=== PATIENT | male | born 1985 | race Caucasian/White ===

== ENCOUNTER → 2020-01-25 14:04 | Outpatient (BNVA) | payer BC, SELFPAY | PROVIDERS: Visit Provider Internal Medicine | DX: Z76.89 Persons encountering health services in other specified circumstances (principal) ==

== ENCOUNTER → 2020-02-29 14:53 | Outpatient (BNVA) | payer BC, SELFPAY | PROVIDERS: PCP Nurse Practitioner Family; Referring Provider Nurse Practitioner Family; Visit Provider Internal Medicine | DX: F11.99 Opioid use, unspecified with unspecified opioid-induced disorder (principal) | CPT/HCPCS: 80305 ==

== ENCOUNTER → 2020-03-18 08:26 | Outpatient (BNVA) | payer BC, SELFPAY | PROVIDERS: PCP Nurse Practitioner Family; Referring Provider Nurse Practitioner Family; Visit Provider Nurse Practitioner Family | DX: Z13.89 Encounter for screening for other disorder (principal) ==

== ENCOUNTER → 2020-03-28 15:52 | Outpatient (BNVA) | payer BC, SELFPAY | PROVIDERS: Visit Provider Internal Medicine | DX: Z76.89 Persons encountering health services in other specified circumstances (principal) ==

== ENCOUNTER → 2020-04-14 08:59 | Outpatient (BNVA) | payer OTHER, SELFPAY | PROVIDERS: Visit Provider Physician Assistant Medical | DX: S33.9XXA Sprain of unspecified parts of lumbar spine and pelvis, initial encounter (principal); X50.1XXA Overexertion from prolonged static or awkward postures, initial encounter; M25.559 Pain in unspecified hip | CPT/HCPCS: 99203; J1885 ==

== ENCOUNTER → 2020-04-16 08:16 | Outpatient (BNVA) | payer OTHER, SELFPAY | PROVIDERS: Visit Provider Internal Medicine | DX: S39.012A Strain of muscle, fascia and tendon of lower back, initial encounter (principal); X58.XXXA Exposure to other specified factors, initial encounter | CPT/HCPCS: 99214 ==

== ENCOUNTER → 2020-04-23 09:41 | Outpatient (BNVA) | payer OTHER, SELFPAY | PROVIDERS: PCP Nurse Practitioner Family; Visit Provider Internal Medicine | DX: M54.9 Dorsalgia, unspecified (principal); M54.10 Radiculopathy, site unspecified; M25.552 Pain in left hip; M25.551 Pain in right hip | CPT/HCPCS: 99213 ==

== ENCOUNTER → 2020-04-24 15:42 | Outpatient (BNVA) | payer OTHER, BC, SELFPAY | PROVIDERS: PCP Nurse Practitioner Family; Visit Provider Internal Medicine | DX: Z76.89 Persons encountering health services in other specified circumstances (principal) ==

== ENCOUNTER 2020-04-29 12:31 | Outpatient (REF) | payer BC, OTHER, SELFPAY ==
--- NOTE | 2020-04-29 12:35 | US_ITS ---
EXAMINATION: US RETROPERITONEAL LIMITED (RENAL ONLY) CLINICAL INFORMATION: Abdominal pain. History of renal stones. COMPARISON: Previous renal ultrasound most recent September 2018 and abdominal ultrasound November 2018, CT of the abdomen and pelvis most recent April 2018 and KUB May 2018 TECHNIQUE: Grayscale and color imaging of the kidneys FINDINGS: RIGHT KIDNEY: 12.1 x 5.7 x 4.3 cm (SAG x AP x TRV). The kidney is normal in size, contour, and echogenicity. Renal cortical thickness is normal. No calculi or focal parenchymal lesions. No hydronephrosis. LEFT KIDNEY: 12.7 x 5.3 x 5.1 cm (SAG x AP x TRV). The kidney is normal in size, contour, and echogenicity. Renal cortical thickness is normal. No calculi or focal parenchymal lesions. No hydronephrosis. US/US renal BI IMPRESSION: Normal renal ultrasound. No stone seen.
== END 2020-04-29 12:32 | disposition home or self-care (01) ==
LOC: HO.HMGCX 12:31
PROVIDERS: Visit Provider Nurse Practitioner Family
DX: R10.9 Unspecified abdominal pain (principal); Z87.442 Personal history of urinary calculi
CPT/HCPCS: 76775

== ENCOUNTER → 2020-05-07 08:02 | Outpatient (BNVA) | payer OTHER, SELFPAY | PROVIDERS: Visit Provider Internal Medicine | DX: S39.012D Strain of muscle, fascia and tendon of lower back, subsequent encounter (principal); X58.XXXD Exposure to other specified factors, subsequent encounter | CPT/HCPCS: 99213 ==

== ENCOUNTER → 2020-05-11 20:23 | Outpatient (REF) | payer BC, SELFPAY | LOC: HO.SL 20:23 | PROVIDERS: PCP Nurse Practitioner Family; Visit Provider Nurse Practitioner Family | DX: G47.33 Obstructive sleep apnea (adult) (pediatric) (principal); G25.81 Restless legs syndrome | CPT/HCPCS: 95810 ==

== ENCOUNTER → 2020-05-21 08:31 | Outpatient (BNVA) | payer OTHER, SELFPAY | PROVIDERS: PCP Nurse Practitioner Family; Visit Provider Internal Medicine | DX: S39.012D Strain of muscle, fascia and tendon of lower back, subsequent encounter (principal); X58.XXXD Exposure to other specified factors, subsequent encounter | CPT/HCPCS: 99213 ==

== ENCOUNTER → 2020-05-28 11:00 | Outpatient (BNVA) | payer BC, OTHER, SELFPAY | PROVIDERS: Visit Provider Internal Medicine | DX: F11.99 Opioid use, unspecified with unspecified opioid-induced disorder (principal) ==

== ENCOUNTER → 2020-05-30 09:03 | Outpatient (BNVA) | payer OTHER, SELFPAY | PROVIDERS: PCP Nurse Practitioner Family; Visit Provider Internal Medicine | DX: S39.012D Strain of muscle, fascia and tendon of lower back, subsequent encounter (principal); X58.XXXD Exposure to other specified factors, subsequent encounter | CPT/HCPCS: 99213 ==

== ENCOUNTER 2020-06-04 08:00 | Outpatient (RCR) | payer OTHER, BC, SELFPAY ==
--- NOTE | 2020-04-22 12:58 | MHC.PT.EP ---
[facility] [place] Office [place] Office [place] Office [address] Kevin Soriano [address] [phone] F: [phone] F: [phone] F: [phone] F: [phone] Physical Therapy Plan of Care Date of Evaluation: 04/22/20 Date of Surgery: NA Diagnosis: Back strain, sciatica Assessment: 35 year old male referred for lumbar strain, sciatica . Pt had sudden onset of pain about 2 weeks back. Pt injured himself at work while he was lifting a tire (60lbs) and stacking them. He was bent over and twisted to the L. He continued to work for a day after and noted worsening pain. Per pt he was unable to stand upright after a few days therefore went to . Examination reveals 4/10 pain at rest and 7/10 pain with standing for long, walking and sitting for long, decreased trunk ROM, decreased muscle strength, altered pelvic symmetry, altered posture and gait. He is independent with ADLS but does them slowly due to pain. He works at [employer] but is currently out of work. He is a good candidate for PT based on age, goals, physical impairments and functional limitations. He would benefit from PT to decrease pain, improve ROM, increase muscle strength and postural correction. Frequency and Duration: The patient will be seen 2/week for 5 weeks Short Term Goals: 1. Pt will have 50% decrease in pain in 2 weeks. 2. Pt will be able to move trunk through all planes of motion without pain in 3 weeks. 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 Pt will be able to perform all ADLS without pain in 4 weeks. 2. Pt will return to PLOF in 5 weeks. Treatment Plan: Modalities to reduce pain, spasms and effusion. Manual therapy to restore motion and function. Therapeutic exercise to improve strength and flexibility. Neuromuscular re-education for posture and balance. Therapeutic activities to return to functional activities of daily living. Electronically signed by: Anayeli Bhandari DPT Please sign and return to therapist. Thank you for your referral.
--- NOTE | 2020-06-04 10:10 | MHC.PT.DC ---
[facility] [place] Office [place] Office [place] Office [address] Kevin Soriano [address] [phone] F: [phone] F: [phone] F: [phone] F: [phone] Physical Therapy Discharge Report Diagnosis: Back strain, sciatica Date of Surgery: NA Date of Evaluation: 04/22/20 Date of Discharge: 06/04/20 Treatments to Date: 13 Cancellations to Date: 0 No Shows to Date: 0 Discharge Status: Achieved Goals Discharge Summary: Pt arrived with no pain. He has returned to PLOF. Pt has returned to regular duty at work and has no difficulty with it. He demonstrates good form with all work activities. Pt therefore d/c from therapy today. Pt advised to continue with lumbar stabs at home after d/c. Electronically signed by: Anayeli Bhandari DPT Please sign and return to therapist. Thank you for your referral.
== END 2020-06-04 10:11 | disposition other institution (70) ==
LOC: HO.PT 08:00
PROVIDERS: PCP Nurse Practitioner Family; Visit Provider Internal Medicine
DX: S39.012D Strain of muscle, fascia and tendon of lower back, subsequent encounter (principal); M54.30 Sciatica, unspecified side
CPT/HCPCS: 97110; 97112; 97140; 97161; 97530

== ENCOUNTER → 2020-06-10 08:34 | Outpatient (BNVA) | payer OTHER, SELFPAY | PROVIDERS: PCP Nurse Practitioner Family; Visit Provider Nurse Practitioner Family ==

== ENCOUNTER → 2020-06-25 14:03 | Outpatient (BNVA) | payer BC, OTHER, SELFPAY | PROVIDERS: PCP Nurse Practitioner Family; Visit Provider Internal Medicine | DX: F11.99 Opioid use, unspecified with unspecified opioid-induced disorder (principal); Z79.899 Other long term (current) drug therapy | CPT/HCPCS: 80305 ==

== ENCOUNTER 2020-07-09 13:58 | Outpatient (REF) | payer BC, SELFPAY ==
[2020-07-15 23:32] LABS: Buprenorphine 4 ng/mL; Norbuprenorphine 22 ng/mL
== END 2020-07-09 13:59 | disposition home or self-care (01) ==
LOC: HO.LNP 13:58
PROVIDERS: PCP Nurse Practitioner Family; Visit Provider Internal Medicine
DX: F11.99 Opioid use, unspecified with unspecified opioid-induced disorder (principal); Z51.81 Encounter for therapeutic drug level monitoring
CPT/HCPCS: 80305; 80348

== ENCOUNTER → 2020-07-23 15:02 | Outpatient (BNVA) | payer BC, SELFPAY | PROVIDERS: Visit Provider Internal Medicine | DX: F11.99 Opioid use, unspecified with unspecified opioid-induced disorder (principal); Z51.81 Encounter for therapeutic drug level monitoring | CPT/HCPCS: 80305 ==

== ENCOUNTER → 2020-08-06 15:31 | Outpatient (BNVA) | payer BC, SELFPAY | PROVIDERS: Visit Provider Internal Medicine | DX: Z51.81 Encounter for therapeutic drug level monitoring (principal); F11.99 Opioid use, unspecified with unspecified opioid-induced disorder | CPT/HCPCS: 80305 ==

== ENCOUNTER → 2020-08-20 10:09 | Outpatient (BNVA) | payer BC, SELFPAY | PROVIDERS: PCP Nurse Practitioner Family; Visit Provider Internal Medicine | DX: F11.99 Opioid use, unspecified with unspecified opioid-induced disorder (principal); Z51.81 Encounter for therapeutic drug level monitoring | CPT/HCPCS: 80305; 96372 ==

== ENCOUNTER → 2020-09-17 10:27 | Outpatient (BNVA) | payer BC, SELFPAY | PROVIDERS: Visit Provider Internal Medicine | DX: F11.21 Opioid dependence, in remission (principal) | CPT/HCPCS: 80305; 96372; Q9992 ==

== ENCOUNTER → 2020-10-17 10:38 | Outpatient (BNVA) | payer BC, SELFPAY | PROVIDERS: Visit Provider Internal Medicine | DX: F11.21 Opioid dependence, in remission (principal) | CPT/HCPCS: 80305; 96372; Q9991 ==

== ENCOUNTER 2021-05-29 07:14 | Outpatient (REF) | payer BC, SELFPAY ==
[2021-05-29 11:18] LABS: MANUAL DIFF FLAG NO
[2021-05-29 11:23] LABS: Basophils Absolute Auto 0.1 X10*3/uL (0.0-0.2); Basophils Percent Auto 0.5 % (0-2); Eosinophils Absolute Auto 0.2 X10*3/uL (0.0-0.4); Eosinophils Percent Auto 1.9 % (0-4); Hematocrit 45.3 % (42.0-52.0); Hemoglobin 15.4 g/dl (14.0-18.0); Imm Gran Abs Auto 0.03 X10*3/uL (0.00-0.03); Imm Gran Pct Auto 0.3 % (0.0-0.4); Lymphocytes Absolute Auto 2.9 X10*3/uL (1.2-4.9); Lymphocytes Percent Auto 28.3 % (20-40); Mean Corpuscular Hemoglobin 30.1 pg (27.0-33.0); Mean Corpuscular Volume 88.5 fL (80.0-98.0); Mean Platelet Volume 10.5 fL (9.4-12.4); Monocytes Absolute Auto 0.7 X10*3/uL (0.1-1.2); Monocytes Percent Auto 6.5 % (2-11); Neutrophils Absolute Auto 6.3 x10*3/uL (2.0-8.3); Neutrophils Percent Auto 62.5 % (45-73); Platelet Count 284 X10*3/uL (160-400); Red Blood Count 5.12 X10*6/uL (4.60-5.80); Red Cell Distribution Width 13.5 % (11.0-16.0); White Blood Count 10.1 X10*3/uL (4.8-10.8)
[2021-05-29 11:30] LABS: Appearance Urine CLOUDY; Color Urine YELLOW; Glucose Urine UA NEG (NEG); Leukocyte Esterase Urine NEG (NEG); Nitrite Urine NEG (NEG); PH 5.5 (5.0-8.0); Specific Gravity - Urine >= 1.030 (1.005-1.025); Urine Blood NEG (NEG); Urine Ketones NEG (NEG); Urine Protein NEG (NEG-TRACE)
[2021-05-29 11:41] LABS: Amorphous Sediment Urine 4+ /LPF; RBC Urine 0 /HPF (0); WBC Urine 0 /HPF (0-4)
[2021-05-29 11:46] LABS: Alanine Aminotransferase 27 U/L (0-40); Albumin Level 4.2 g/dL (3.5-5.0); Alkaline Phosphatase 77 U/L (39-117); Anion Gap 14 (12-20); Aspartate Amino Transferase 17 U/L (5-37); Bilirubin Total 0.6 mg/dL (0.0-1.0); Blood Urea Nitrogen 13 mg/dL (9-16); Calcium 9.6 mg/dL (8.4-10.2); Carbon Dioxide 25 mmol/L (22-29); Chloride 106 mmol/L (96-108); Estimated Glomerular Filt Rate > 60; Glucose Random 108 mg/dL (60-115); Potassium 4.3 mmol/L (3.3-5.1); Sodium 141 mmol/L (135-145); Total Protein 6.8 g/dL (6.5-8.0)
[2021-05-29 12:09] LABS: Prostate Specific Antigen Scr 0.92 ng/mL (<0.05-4.0)
[2021-05-30 08:06] LABS: Follicle Stimulating Hormone 5.8 mIU/mL (1.6-8.0); Lutenizing Hormone 3.5 mIU/mL (1.5-9.3)
[2021-06-02 14:31] LABS: Testosterone, Total 71 ng/dL (250-1100)
== END 2021-05-29 07:15 | disposition home or self-care (01) ==
LOC: HO.HMGCLDS 07:14
PROVIDERS: Absent Provider Nurse Practitioner Family; Visit Provider Nurse Practitioner Family
DX: Z12.5 Encounter for screening for malignant neoplasm of prostate (principal); R32 Unspecified urinary incontinence; R68.82 Decreased libido
CPT/HCPCS: 36415; 80053; 81001; 83001; 83002; 84153; 84403; 85025; 87086

== ENCOUNTER 2021-10-30 07:17 | Outpatient (REF) | payer BC, SELFPAY ==
[2021-10-30 12:05] LABS: Albumin Level 4.3 g/dL (3.5-5.0)
[2021-11-01 03:01] LABS: Follicle Stimulating Hormone 6.1 mIU/mL (1.6-8.0); Lutenizing Hormone 3.5 mIU/mL (1.5-9.3); Sex Hormone Binding Globulin 15 nmol/L (10-50)
[2021-11-06 12:56] LABS: Testosterone, Free 48.4 pg/mL (35.0-155.0); Testosterone, Total 195 ng/dL (250-1100)
== END 2021-10-30 07:18 | disposition home or self-care (01) ==
LOC: HO.HMGCLDS 07:17
PROVIDERS: Visit Provider Urology
DX: E29.1 Testicular hypofunction (principal); R79.89 Other specified abnormal findings of blood chemistry
CPT/HCPCS: 36415; 82040; 83001; 83002; 84270; 84402; 84403

== ENCOUNTER 2021-11-06 07:14 | Outpatient (REF) | payer BC, SELFPAY ==
[2021-11-09 02:36] LABS: Lutenizing Hormone 10.3 mIU/mL (1.5-9.3)
[2021-11-12 10:06] LABS: Testosterone, Free 89.7 pg/mL (35.0-155.0); Testosterone, Total 419 ng/dL (250-1100)
[2021-11-13 21:41] LABS: Estradiol Ultra Sensitive 30 pg/mL (< OR = 29)
== END 2021-11-06 07:15 | disposition home or self-care (01) ==
LOC: HO.HMGCLDS 07:14
PROVIDERS: Visit Provider Urology
DX: R79.89 Other specified abnormal findings of blood chemistry (principal); E29.1 Testicular hypofunction
CPT/HCPCS: 36415; 82670; 83001; 83002; 84402; 84403

== ENCOUNTER 2022-02-10 09:23 | Outpatient (REF) | payer BC, SELFPAY ==
[2022-02-12 13:27] LABS: Lutenizing Hormone 22.6 mIU/mL (1.5-9.3)
[2022-02-16 09:07] LABS: Testosterone, Total 815 ng/dL (250-1100)
== END 2022-02-10 09:24 | disposition home or self-care (01) ==
LOC: HO.HMGCLDS 09:23
PROVIDERS: PCP Nurse Practitioner Family; Visit Provider Urology
DX: E29.1 Testicular hypofunction (principal)
CPT/HCPCS: 36415; 83002; 84403

== ENCOUNTER 2022-05-07 08:31 | Outpatient (REF) | payer BC, SELFPAY ==
[2022-05-07 12:47] LABS: Prostate Specific Antigen 1.81 ng/mL (<0.05-4.0)
[2022-05-08 23:29] LABS: Lutenizing Hormone 16.6 mIU/mL (1.5-9.3)
[2022-05-12 20:33] LABS: Estradiol Ultra Sensitive 52 pg/mL (< OR = 29)
[2022-05-13 11:58] LABS: Testosterone, Total 595 ng/dL (250-1100)
== END 2022-05-07 08:32 | disposition home or self-care (01) ==
LOC: HO.HMGCLDS 08:31
PROVIDERS: PCP Nurse Practitioner Family; Visit Provider Urology
DX: Z12.5 Encounter for screening for malignant neoplasm of prostate (principal); E29.1 Testicular hypofunction; R79.89 Other specified abnormal findings of blood chemistry
CPT/HCPCS: 36415; 82670; 83002; 84153; 84403

== ENCOUNTER → 2022-05-19 14:18 | Outpatient (BNVA) | payer BC, SELFPAY | PROVIDERS: PCP Nurse Practitioner Family; Visit Provider Urology | DX: Z13.89 Encounter for screening for other disorder (principal) ==

== ENCOUNTER 2022-08-04 08:31 | Outpatient (REF) | payer BC, SELFPAY ==
[2022-08-04 11:27] LABS: MANUAL DIFF FLAG NO
[2022-08-04 11:38] LABS: Basophils Absolute Auto 0.1 X10*3/uL (0.0-0.2); Basophils Percent Auto 0.9 % (0-2); Eosinophils Absolute Auto 0.1 X10*3/uL (0.0-0.4); Eosinophils Percent Auto 2.1 % (0-4); Hematocrit 45.4 % (42.0-52.0); Hemoglobin 15.8 g/dl (14.0-18.0); Imm Gran Abs Auto 0.01 X10*3/uL (0.00-0.03); Imm Gran Pct Auto 0.2 % (0.0-0.4); Lymphocytes Absolute Auto 2.7 X10*3/uL (1.2-4.9); Lymphocytes Percent Auto 40.7 % (20-40); Mean Corpuscular HGB Conc 34.8 g/dl (31.0-36.0); Mean Corpuscular Hemoglobin 31.3 pg (27.0-33.0); Mean Corpuscular Volume 90.1 fL (80.0-98.0); Mean Platelet Volume 10.6 fL (9.4-12.4); Monocytes Absolute Auto 0.5 X10*3/uL (0.1-1.2); Monocytes Percent Auto 8.1 % (2-11); Neutrophils Absolute Auto 3.2 x10*3/uL (2.0-8.3); Platelet Count 227 X10*3/uL (160-400); Red Blood Count 5.04 X10*6/uL (4.60-5.80); Red Cell Distribution Width 13.7 % (11.0-16.0); White Blood Count 6.6 X10*3/uL (4.8-10.8)
[2022-08-04 11:39] LABS: Appearance Urine Turbid; Color Urine Yellow; Glucose Urine UA Negative (Negative); Leukocyte Esterase Urine Negative (Negative); Nitrite Urine Negative (Negative); Specific Gravity - Urine 1.025 (1.005-1.025); Urine Blood Negative (Negative); Urine Ketones Negative (Negative); Urine Protein Negative (Neg-Trace)
[2022-08-04 12:51] LABS: Alanine Aminotransferase 30 U/L (0-40); Albumin Level 4.2 g/dL (3.5-5.0); Alkaline Phosphatase 68 U/L (39-117); Anion Gap 11 (12-20); Aspartate Amino Transferase 23 U/L (5-37); Bilirubin Total 0.6 mg/dL (0.0-1.0); Blood Urea Nitrogen 16 mg/dL (9-16); Calcium 9.2 mg/dL (8.4-10.2); Carbon Dioxide 27 mmol/L (22-29); Chloride 107 mmol/L (96-108); Cholesterol 205 mg/dL; Estimated Glomerular Filt Rate > 60; Glucose Fasting 109 mg/dL (60-99); HDL Cholesterol 40 mg/dL; LDL Cholesterol Calculated 147 mg/dl; Potassium 4.2 mmol/L (3.3-5.1); Sodium 141 mmol/L (135-145); TSH reflex Free T4 1.05 uIU/mL (0.32-4.0); Total Protein 6.4 g/dL (6.5-8.0); Triglycerides 93 mg/dL
[2022-08-05 11:54] LABS: Lutenizing Hormone 6.3 mIU/mL (1.5-9.3)
[2022-08-09 13:13] LABS: Testosterone, Total 303 ng/dL (250-1100)
== END 2022-08-04 08:32 | disposition home or self-care (01) ==
LOC: HO.HMGCLDS 08:31
PROVIDERS: Absent Provider Urology; PCP Nurse Practitioner Family; Visit Provider Nurse Practitioner Family
DX: R79.89 Other specified abnormal findings of blood chemistry (principal); I10 Essential (primary) hypertension
CPT/HCPCS: 36415; 80053; 80061; 81003; 83002; 84403; 84443; 85025

== ENCOUNTER → 2022-08-17 14:19 | Outpatient (BNVA) | payer BC, SELFPAY | PROVIDERS: PCP Nurse Practitioner Family; Visit Provider Urology | DX: N20.0 Calculus of kidney (principal); F11.20 Opioid dependence, uncomplicated; R79.89 Other specified abnormal findings of blood chemistry | CPT/HCPCS: 99212 ==

== ENCOUNTER 2022-11-12 07:31 | Outpatient (REF) | payer BC, SELFPAY ==
[2022-11-12 13:25] LABS: Alanine Aminotransferase 29 U/L (0-40); Albumin Level 4.3 g/dL (3.5-5.0); Alkaline Phosphatase 62 U/L (39-117); Anion Gap 13 (12-20); Aspartate Amino Transferase 19 U/L (5-37); Bilirubin Total 0.4 mg/dL (0.0-1.0); Blood Urea Nitrogen 17 mg/dL (9-16); Calcium 9.7 mg/dL (8.4-10.2); Carbon Dioxide 26 mmol/L (22-29); Chloride 107 mmol/L (96-108); Cholesterol 221 mg/dL; Estimated Glomerular Filt Rate > 60; Glucose Fasting 109 mg/dL (60-99); HDL Cholesterol 44 mg/dL; LDL Cholesterol Calculated 154 mg/dl; Potassium 4.2 mmol/L (3.3-5.1); Sodium 142 mmol/L (135-145); Total Protein 6.9 g/dL (6.5-8.0); Triglycerides 116 mg/dL
[2022-11-14 10:04] LABS: Lutenizing Hormone 3.5 mIU/mL (1.5-9.3)
[2022-11-18 16:28] LABS: Testosterone, Free 81.1 pg/mL (35.0-155.0); Testosterone, Total 367 ng/dL (250-1100)
[2022-11-18 22:47] LABS: Estradiol Ultra Sensitive 17 pg/mL (< OR = 29)
== END 2022-11-12 07:32 | disposition home or self-care (01) ==
LOC: HO.HMGCLDS 07:31
PROVIDERS: Absent Provider Urology; PCP Nurse Practitioner Family; Visit Provider Nurse Practitioner Family
DX: R79.89 Other specified abnormal findings of blood chemistry (principal); E78.5 Hyperlipidemia, unspecified
CPT/HCPCS: 36415; 80053; 80061; 82670; 83002; 84402; 84403

== ENCOUNTER 2022-11-23 13:06 | Outpatient (AMB) | payer BC, SELFPAY ==
--- NOTE | 2022-11-23 13:14 | MHC.OFFVIS ---
Intake Intake Visit Reasons: 3M Estradiol/LH/Testo(pending) Intake Note: Patient is present for Follow Up labs Urology Med:none Antibiotic Allergy: none Blood Thinner: none Pharmacy: [facility] Allergies No Known Allergies [No Known Allergies*] Allergy (Verified 11/23/22 13:15) many environmental allergies Allergy (Unknown, Uncoded 11/23/22 13:15) Unknown HPI HPI Comments History of Present Illness Details Jake is a pleasant male. He is a patient Dr. Pride. He is seen for following urologic conditions - nephrolithiasis - low testosterone Lab work remains in target of medications Encouraged to remain on sleep apnea machine 6 month follow-up Will plan on reviewing stones Nephrolithiasis Imaging - 05/15 renal ultrasound no stone seen Low testosterone Initial symptoms lack of energy, decreased libido, no morning erections Has sleep apnea treated with machine Prior opiate dependence No reported significant viral illnesses Laboratories - 06/16 T 71 LH 3.5 T 195, 11/13 T 420 LH 10, 02/13 T 815 LH 22, 05/17 T 600 LH 16 E 52, 08/15 T 305 LH 6.6 - 11/13 Clomiphene stim - LH 10.3 T 415 - 11/14 T 367 Fr 81 LH 3.5 Biochemical apparent testicular resistance Normal testicular size on exam Prior therapy Clomiphene 50mg QOD, Clomiphene 25mg QOD PFSH Medical History Opioid use disorder Sleep disorder Snoring Family History Father No problems noted. Mother No problems noted. Son No problems noted. Sister No problems noted. Sister No problems noted. Social History Housing: House Patient Tobacco Use Status: Current everyday Tobacco user Cigarette Packs Per Day: 1 e-Cigarette/Vaping Use: Never Used Second Hand Smoke Exposure: Yes service: No Current occupational status: employed Current occupation: [employer] Current occupational exposures/hazards: No Cognitive needs: No Hearing needs: No Vision needs: No Review of Systems Const Denies chills and Denies fever(s) Card Reports no additional complaints and Denies syncope Resp Denies cough GI Denies abdominal pain and Denies heartburn Reports as per HPI and Denies change in libido Neuro Denies syncope Psych Denies change in libido Endo Denies change in libido Physical Exam Const General: cooperative, healthy appearing, comfortable and no acute distress Orientation/consciousness: patient oriented x3 HEENT Face and sinus: Yes normal facial exam Mouth: moist mucous membranes Neck Neck: Yes normal visual inspection, Yes full ROM and Yes trachea midline Chest Chest palpation & inspection: normal inspection of the chest Resp Effort & Inspection: normal respiratory effort, able to speak in complete sentences and no respiratory distress GI Inspection: Yes normal to inspection Back/Spine/Pelvis Cervical Spine: normal cervical lordosis Thoracic/Lumbar Spine: thoracic and lumbar spine normal to inspection Skin General skin exam: no rashes or lesions noted Neuro General: patient oriented x3, gait normal, tone normal and moves all extremities Extrem General: Yes normal to inspection and Yes capillary refill normal Assessment & Plan Assessment & Plan (1) Erectile dysfunction: Code(s): N52.9 - Male erectile dysfunction, unspecified Plan Six month follow-up Orders: Orders Testosterone, Free/Total 6 Months R79.89 - Other specified abnormal findings of blood chemistry Medications: New tadalafil On demand medication take 60 minutes before intended activity 20 mg PO ONCE 30 tabs 1RF sexual activity 30 days N52.9 - Male erectile dysfunction, unspecified Patient Instructions: Imaging studies, laboratory and physical exam results were discussed and reviewed in detail. No major barriers to patient understanding were identified. An opportunity to ask questions regarding the treatment plan was provided. All questions were answered. The patient expressed understanding and agreement with the above treatment plan. The patient is aware they should contact our office by phone for worsening of their current condition or the appearance of new urologic symptoms. Compliance is encouraged with any medications and followup testing that is ordered. It is a privilege to participate in the urologic care of your patient. If you have any questions or concerns regarding treatment for the above conditions, or other urologic issues, please do not hesitate to contact me. The office telephone contact is [phone]. This note is constructed using voice recognition software. While every effort has been made to ensure accuracy supervisor powder and primer canning errors may have been included. Yours sincerely, Dr Nacho Andujar MD, [facility] - Urology Providers of Expert, Compassionate Care for the Genitourinary System Coding Level of Care Code Est Pt Level 3 (99587) Diagnoses Erectile dysfunction N52.9
== END 2022-11-23 13:49 | disposition home or self-care (01) ==
PROVIDERS: Visit Provider Urology
DX: N52.9 Male erectile dysfunction, unspecified (principal)
CPT/HCPCS: 99213

== ENCOUNTER → 2022-11-23 13:06 | Outpatient (BNVA) | payer BC, SELFPAY | PROVIDERS: Visit Provider Urology ==

== ENCOUNTER 2023-01-19 07:32 | Outpatient (AMB) | payer BC, SELFPAY ==
[2023-01-19 07:38] VITALS: BP 110/88; PULSE 79; O2SAT 99; BMI 32.1
--- NOTE | 2023-01-19 07:38 | MHC.PC.OV ---
Vital Signs 01/19/23 07:38 Height 5 ft 10 in Weight 223 lb 8 oz BMI 32.1 BP 110/88 Blood Pressure Location Rt brachial Position Sitting Pulse 79 Pulse Source Pulse Oximeter Pulse Oximetry (%) 99 Oxygen Delivery Method Room Air Intake Visit Reasons: PE Allergies No Known Allergies [No Known Allergies*] Allergy (Verified 01/19/23 07:40) many environmental allergies Allergy (Unknown, Uncoded 01/19/23 07:40) Unknown Medication List - Last Reconciled 01/19/23 by YAEL Blanco-SIRI albuterol sulfate 90 mcg/actuation 2 puffs inhalation Q4-6H PRN ibuprofen 800 mg PO TID irbesartan 150 mg PO DAILY 90 days omeprazole 20 mg PO BID tadalafil 20 mg PO ONCE 30 days Tobacco use date assessed: 01/19/23 Dental Screening Dental Screen Date: 01/19/23 Did you have a dental visit in the last 12 months?: No Did you have a dental problem in the last 6 months where you did not have access to dental care?: No Was dental information given to patient?: Patient has dentist HPI PE HPI Details Pt is here for a PE. Will order labs. Pt reports dizziness upon standing. ? blood pressure issue. Will have pt monitor his blood pressure at home while sitting, standing, and laying down. Encouraged pt to push fluids and electrolytes, ? dehydration component, will also get labs. Pt c/o left flank pain. He has a hx of kidney stones. Will order CT. Denies fever, chills, and hematuria. knows to go to the ER with worsening symptoms. [facility] Medical History Opioid use disorder Sleep disorder Snoring Family History Father No problems noted. Mother No problems noted. Son No problems noted. Sister No problems noted. Sister No problems noted. Social History Housing: House Patient Tobacco Use Status: Current everyday Tobacco user Cigarette Packs Per Day: 1 e-Cigarette/Vaping Use: Never Used Second Hand Smoke Exposure: Yes service: No Current occupational status: employed Current occupation: [employer] Current occupational exposures/hazards: No Cognitive needs: No Hearing needs: No Vision needs: No Review of Systems Const Denies chills and Denies fever(s) Eyes Denies blurry vision ENT Denies vertigo, Reports dizziness and Denies sore throat Card Denies chest pain at rest, Denies chest pain with activity, Denies diaphoresis, Denies dyspnea and Denies dyspnea on exertion Resp Denies cough, Denies dyspnea, Denies dyspnea on exertion and Denies wheezing GI Denies abdominal pain, Denies melena, Denies hematochezia, Denies constipation, Denies diarrhea and Denies loose stools Denies hematuria Musc Denies numbness and Denies tingling Skin/Breast Denies lesions Neuro Denies vertigo, Reports dizziness, Denies numbness and Denies tingling Psych Denies anxiety, Denies depression, Denies homicidal ideation, Denies suicidal ideation and Denies other (substance abuse) Aller/Immun Denies wheezing Physical exam (Primary Care) Vital Signs: Last Vital Signs Pulse 79 01/19/23 07:38 BP 110/88 01/19/23 07:38 Pulse Ox 99 01/19/23 07:38 Oxygen Delivery Method Room Air 01/19/23 07:38 BMI result Body Mass Index 32.1 Tobacco/Smoking Status: Tobacco use Status Tobacco use date assessed 01/19/23 01/19/23 07:42 Patient Tobacco Use Status Current everyday Tobacco 01/19/23 07:42 e-Cigarette/Vaping Use Never Used 01/19/23 07:42 Const General: cooperative Nutritional Appearance: well nourished Orientation/consciousness: patient oriented x3 HENMT Head: Yes normal to inspection, Yes normocephalic and Yes atraumatic Ears: TM's normal bilaterally Eyes General: appearance normal, both eyes and all related structures Alignment and Position: alignment normal and position normal Neck Neck: Yes normal visual inspection and Yes no lymphadenopathy Thyroid: Thyroid normal Resp Effort & Inspection: normal respiratory effort Auscultation: clear to auscultation bilaterally Cardio Rate: regular rate Rhythm: regular rhythm Heart sounds: S1 normal heart sound present, S2 normal heart sound present and no murmurs GI Palpation (GI): Soft to palpation and nontender Auscultation: normal bowel sounds General: Yes no CVA tenderness Male General Exam: Yes normal external exam Penis: normal penis Scrotum: scrotum normal, testes descended bilaterally and no inguinal hernias Testes: no testicular mass Back/Spine/Pelvis Back: no CVA tenderness Skin Rashes: no rashes Neuro General: patient oriented x3, moves all extremities, no focal motor deficits and deep tendon reflexes 2+ bilaterally Romberg Test: Negative Psych Appearance: grossly normal Mental Status: mental status grossly normal Speech and movement: Normal speech and movement present Affect: normal affect Attitude: cooperative Thought process: Normal thought process present Thought content: Normal thought content present Insight: Good insight present (Psych) Judgement: Good judgement present (Psych) Assessment and Plan Assessment & Plan (1) Physical exam: Code(s): Z00.00 - Encounter for general adult medical examination without abnormal findings Plan: Labs ordered (2) Acute left flank pain: Code(s): R10.9 - Unspecified abdominal pain Plan: CT ordered (3) Kidney stones: Code(s): N20.0 - Calculus of kidney Plan: CT ordered Plan The patient agreed to the use of a medical/surgery registered nurse for this encounter. Scribed for YAEL Nagel-SIRI by Blanca Farris medical/surgery registered nurse, on 01/19/2023 at 07:45 EST. Orders: Orders Complete Blood Count Auto Diff Today Z00.00 - Encounter for general adult medical examination without abnormal findings TSH reflex Free T4 Today Z00.00 - Encounter for general adult medical examination without abnormal findings UA CC w/rflx Micro + Cult Today Z00.00 - Encounter for general adult medical examination without abnormal findings Lipid Panel Today Z00.00 - Encounter for general adult medical examination without abnormal findings CT abdomen pelvis wo IV con Today N20.0 - Calculus of kidney, R10.9 - Unspecified abdominal pain Comprehensive [place]. Panel Fast Today Z00.00 - Encounter for general adult medical examination without abnormal findings Coding Level of Care Code Est Pt Prev Care 18-39y(61549) Diagnoses Physical exam Z00.00 Acute left flank pain R10.9 Kidney stones N20.0
== END 2023-01-19 08:00 | disposition home or self-care (01) ==
PROVIDERS: Visit Provider Nurse Practitioner Family
DX: Z00.00 Encounter for general adult medical examination without abnormal findings (principal); R10.9 Unspecified abdominal pain; N20.0 Calculus of kidney
CPT/HCPCS: 99395

== ENCOUNTER 2023-02-18 07:41 | Outpatient (REF) | payer BC, SELFPAY ==
--- NOTE | ~2023-02-18 | CT_ITS ---
EXAMINATION: CT ABDOMEN AND PELVIS WITHOUT CONTRAST CLINICAL INFORMATION: Calculus of kidney. COMPARISON: Renal ultrasound 04/29/2020, CT abdomen 05/05/2018. TECHNIQUE: Multidetector volumetric imaging was performed from the superior aspect of the liver through the pubic symphysis. Sagittal and coronal reformatted images were obtained on the technologist's workstation. This CT examination was performed using dose optimization techniques as appropriate, variously including the following: *Automated exposure control *Adjustment of mA and/or kV according to patient size (this includes techniques or standardized protocols for targeted exams where dose is matched to indication/reason for exam; i.e. extremities or head) *Use of iterative reconstruction technique DLP: 581 mGy-cm FINDINGS: LUNG BASES: The visualized lung bases are unremarkable. LIVER, GALLBLADDER, AND BILIARY TREE: The liver is normal in size, shape, and attenuation. No focal hepatic lesion or biliary ductal dilatation is present. The gallbladder is unremarkable with no evidence of radiopaque gallstones, gallbladder wall thickening, or obvious pericholecystic inflammatory changes. PANCREAS: Unremarkable. SPLEEN: Unremarkable. ADRENAL GLANDS: Unremarkable. KIDNEYS AND URETERS: In the lower pole of the left kidney there is a 3 mm calculus present, unchanged from 05/05/2018. At the time of the prior study, there was a larger branching calculus in the left mid to upper kidney which is no longer present. At the lower pole of the right kidney there is a barely perceptible punctate 1-2 mm density seen which could represent a tiny stone (3:39). No other right-sided calculi. No renal masses or hydronephrosis. BLADDER: Unremarkable. GASTROINTESTINAL TRACT: The small and large bowel are unremarkable aside from scattered colonic diverticula without diverticulitis. The appendix is unremarkable. ABDOMINAL WALL: Small bilateral inguinal hernias are seen containing only fat. LYMPH NODES: No retroperitoneal lymphadenopathy. VASCULAR: Unremarkable. PELVIC VISCERA: There is mild BPH. Seminal vesicles appear normal. OSSEOUS STRUCTURES: Mild degenerative changes are present in the spine most marked at L4-L5 with disc space narrowing. No bony destructive lesions. CT/CT abdomen pelvis wo IV con IMPRESSION: 1. There is a 3 mm nonobstructing calculus in the lower pole of the left kidney with a barely perceptible punctate 1-2 mm punctate density seen in the lower pole of the right kidney which could represent a tiny stone. 2. Other incidental findings as described above including colonic diverticulosis, small bilateral inguinal hernias containing only fat and mild BPH. Fleischner guidelines were followed.
== END 2023-02-18 07:42 | disposition home or self-care (01) ==
LOC: HO.CT 07:41
PROVIDERS: PCP Nurse Practitioner Family; Visit Provider Nurse Practitioner Family
DX: N20.0 Calculus of kidney (principal); R10.9 Unspecified abdominal pain
CPT/HCPCS: 74176

== ENCOUNTER 2023-05-23 12:50 | Outpatient (REF) | payer BC, SELFPAY ==
[2023-05-28 21:24] LABS: Testosterone, Free 41.6 pg/mL (35.0-155.0); Testosterone, Total 218 ng/dL (250-1100)
== END 2023-05-23 12:51 | disposition home or self-care (01) ==
LOC: HO.HMGCLDS 12:50
PROVIDERS: PCP Nurse Practitioner Family; Visit Provider Urology
DX: R79.89 Other specified abnormal findings of blood chemistry (principal)
CPT/HCPCS: 36415; 84402; 84403

== ENCOUNTER 2023-06-02 11:17 | Outpatient (AMB) | payer BC, SELFPAY ==
--- NOTE | 2023-06-02 11:20 | MHC.OFFVIS ---
Intake Intake Visit Reasons: Testosterone (SET) Intake Note: Patient is Present for Telephone Follow Up Testosterone Urology Med: Tadalafil Antibiotic Allergy: None Blood Thinner: None Allergies No Known Allergies [No Known Allergies*] Allergy (Verified 06/02/23 11:22) many environmental allergies Allergy (Unknown, Uncoded 06/02/23 11:22) Unknown Medication List - Last Reconciled 06/02/23 by Nacho Andujar MD albuterol sulfate 90 mcg/actuation 2 puffs inhalation Q4-6H PRN ibuprofen 800 mg PO TID irbesartan 150 mg PO DAILY 90 days omeprazole 20 mg PO BID tadalafil 20 mg PO ONCE 30 days tadalafil 5 mg PO DAILY 90 days HPI HPI Comments History of Present Illness Details Jake is a pleasant male. He is a patient Dr. Pride. He is seen for following urologic conditions - nephrolithiasis - low testosterone Telemedicine Evaluation 15 min Consultation [employer] Video attempted Discussed use of daily low-dose Cialis to try to bring up testosterone Is borderline low Has been drifting down Clomiphene no longer available Lab work remains in target of medications Previously encouraged to remain on sleep apnea machine Nephrolithiasis Imaging - 05/15 renal ultrasound no stone seen - 04/16 CT scan with 3 mm stone [place] - 2018 Calcium Oxalate Monohydrate ([place]) 80% Low testosterone Initial symptoms lack of energy, decreased libido, no morning erections Has sleep apnea treated with machine Prior opiate dependence No reported significant viral illnesses Laboratories - 06/16 T 71 LH 3.5 T 195, 11/13 T 420 LH 10, 02/13 T 815 LH 22, 05/17 T 600 LH 16 E 52, 08/15 T 305 LH 6.6 - 11/13 Clomiphene stim - LH 10.3 T 415, 11/14 T 367 Fr 81 LH 3.5, 05/18 218 Fr 42 Biochemical apparent testicular resistance Normal testicular size on exam Prior therapy Clomiphene 50mg QOD, Clomiphene 25mg QOD PFSH Medical History Opioid use disorder Sleep disorder Snoring Family History Father No problems noted. Mother No problems noted. Son No problems noted. Sister No problems noted. Sister No problems noted. Social History Housing: House Patient Tobacco Use Status: Current everyday Tobacco user Cigarette Packs Per Day: 1 e-Cigarette/Vaping Use: Never Used Second Hand Smoke Exposure: Yes service: No Current occupational status: employed Current occupation: [employer] Current occupational exposures/hazards: No Cognitive needs: No Hearing needs: No Vision needs: No Review of Systems Const All systems reviewed & are unremarkable except as noted in HPI and below Reports no additional complaints Resp Reports no additional complaints GI Reports no additional complaints Reports as per HPI Musc Reports no additional complaints Physical Exam Telemedicine evaluation Appropriate responses Regular breathing rate and rhythm HEENT Head: Yes normal to inspection Ears: hearing grossly normal bilaterally Eyes General: appearance normal, both eyes and all related structures Neck Neck: Yes normal visual inspection Chest Chest palpation & inspection: normal inspection of the chest Resp Effort & Inspection: normal respiratory effort and able to speak in complete sentences Assessment & Plan Assessment & Plan (1) Erectile dysfunction: Code(s): N52.9 - Male erectile dysfunction, unspecified (2) Low testosterone: Code(s): R79.89 - Other specified abnormal findings of blood chemistry Plan Three month follow-up labs Orders: Orders Testosterone, Free/Total 3 Months R79.89 - Other specified abnormal findings of blood chemistry Medications: New tadalafil daily medication 5 mg PO DAILY 90 tabs 0RF sexual activity 90 days R79.89 - Other specified abnormal findings of blood chemistry Patient Instructions: Imaging studies, laboratory and physical exam results were discussed and reviewed in detail. No major barriers to patient understanding were identified. An opportunity to ask questions regarding the treatment plan was provided. All questions were answered. The patient expressed understanding and agreement with the above treatment plan. The patient is aware they should contact our office by phone for worsening of their current condition or the appearance of new urologic symptoms. Compliance is encouraged with any medications and followup testing that is ordered. It is a privilege to participate in the urologic care of your patient. If you have any questions or concerns regarding treatment for the above conditions, or other urologic issues, please do not hesitate to contact me. The office telephone contact is [phone]. This note is constructed using voice recognition software. While every effort has been made to ensure accuracy dot etcher errors may have been included. Yours sincerely, Dr Nacho Andujar MD, [facility] - Urology Providers of Expert, Compassionate Care for the Genitourinary System Telehealth Telehealth Location of provider rendering services: practice address Location of patient: address on file Patient Identification confirmed using: Name, : Yes Telehealth method: video Patient verbally consented to treatment: Yes Patient verbally consented to billing insurance company: Yes Patient informed of any privacy concerns related to visit: Yes Coding Level of Care Code Tele Est Pt Level 4 (13861) Diagnoses Erectile dysfunction N52.9 Low testosterone R79.89
== END 2023-06-02 11:56 | disposition home or self-care (01) ==
LOC: HO.HUSH 11:17
PROVIDERS: PCP Nurse Practitioner Family; Visit Provider Urology
DX: N52.9 Male erectile dysfunction, unspecified (principal); R79.89 Other specified abnormal findings of blood chemistry
CPT/HCPCS: 99213

== ENCOUNTER → 2023-06-02 11:17 | Outpatient (BNVA) | payer BC, SELFPAY | PROVIDERS: PCP Nurse Practitioner Family; Visit Provider Urology ==

== ENCOUNTER 2023-07-18 07:02 | Outpatient (REF) | payer BC, SELFPAY ==
[2023-07-18 11:15] LABS: Appearance Urine Clear; Color Urine Yellow; Glucose Urine UA Negative (Negative); Leukocyte Esterase Urine Negative (Negative); Nitrite Urine Negative (Negative); PH 5.5 (5.0-9.0); Specific Gravity - Urine 1.015 (1.005-1.025); Urine Blood Negative (Negative); Urine Ketones Negative (Negative); Urine Protein Negative (Neg-Trace)
[2023-07-18 11:18] LABS: MANUAL DIFF FLAG NO
[2023-07-18 11:32] LABS: Basophils Absolute Auto 0.1 X10*3/uL (0.0-0.2); Basophils Percent Auto 0.9 % (0-2); Eosinophils Absolute Auto 0.3 X10*3/uL (0.0-0.4); Eosinophils Percent Auto 3.2 % (0-4); Hematocrit 47.4 % (42.0-52.0); Hemoglobin 16.1 g/dl (14.0-18.0); Imm Gran Abs Auto 0.06 X10*3/uL (0.00-0.03); Imm Gran Pct Auto 0.7 % (0.0-0.4); Lymphocytes Absolute Auto 3.6 X10*3/uL (1.2-4.9); Lymphocytes Percent Auto 43.5 % (20-40); Mean Corpuscular Hemoglobin 31.4 pg (27.0-33.0); Mean Corpuscular Volume 92.6 fL (80.0-98.0); Mean Platelet Volume 10.4 fL (9.4-12.4); Monocytes Absolute Auto 0.7 X10*3/uL (0.1-1.2); Neutrophils Absolute Auto 3.6 x10*3/uL (2.0-8.3); Neutrophils Percent Auto 43.7 % (45-73); Platelet Count 255 X10*3/uL (160-400); Red Blood Count 5.12 X10*6/uL (4.60-5.80); Red Cell Distribution Width 13.6 % (11.0-16.0); White Blood Count 8.2 X10*3/uL (4.8-10.8)
[2023-07-18 14:03] LABS: Alanine Aminotransferase 40 U/L (0-40); Albumin Level 4.2 g/dL (3.5-5.0); Alkaline Phosphatase 60 U/L (39-117); Anion Gap 13 (12-20); Aspartate Amino Transferase 26 U/L (5-37); Bilirubin Total 0.4 mg/dL (0.0-1.0); Blood Urea Nitrogen 11 mg/dL (9-16); Calcium 9.6 mg/dL (8.4-10.2); Carbon Dioxide 26 mmol/L (22-29); Chloride 105 mmol/L (96-108); Cholesterol 201 mg/dL (<200); Estimated Glomerular Filt Rate > 60; Glucose Fasting 110 mg/dL (60-99); HDL Cholesterol 48 mg/dL (>40); LDL Cholesterol Calculated 133 mg/dL (<100); Potassium 4.1 mmol/L (3.3-5.1); Sodium 140 mmol/L (135-145); TSH reflex Free T4 1.33 uIU/mL (0.32-4.0); Total Protein 6.9 g/dL (6.5-8.0); Triglycerides 102 mg/dL (<150)
== END 2023-07-18 07:03 | disposition home or self-care (01) ==
LOC: HO.HMGCLDS 07:02
PROVIDERS: PCP Nurse Practitioner Family; Visit Provider Nurse Practitioner Family
DX: Z00.00 Encounter for general adult medical examination without abnormal findings (principal); Z13.6 Encounter for screening for cardiovascular disorders
CPT/HCPCS: 36415; 80053; 80061; 81003; 84443; 85025

== ENCOUNTER 2023-09-13 07:39 | Outpatient (AMB) | payer BC, SELFPAY ==
[2023-09-13 07:49] VITALS: BP 92/72; PULSE 80; O2SAT 98; BMI 34.1
--- NOTE | 2023-09-13 07:49 | MHC.PC.OV ---
Vital Signs 09/13/23 07:49 Height 5 ft 10 in Weight 238 lb BMI 34.1 BP 92/72 Blood Pressure Location Lt brachial Position Sitting Pulse 80 Pulse Source Pulse Oximeter Pulse Oximetry (%) 98 Oxygen Delivery Method Room Air Intake Visit Reasons: 6 month follow up/Missed appt 07/17 Intake Note: Pt is here today for his 6mo. f/u Allergies No Known Allergies [No Known Allergies*] Allergy (Verified 09/13/23 08:16) many environmental allergies Allergy (Unknown, Uncoded 09/13/23 08:16) Unknown Medication List - Last Reconciled 09/13/23 by SATURNINO Blanco ibuprofen 800 mg PO TID irbesartan 75 mg PO DAILY 90 days loratadine 10 mg PO DAILY omeprazole 20 mg PO BID tadalafil 5 mg PO DAILY 90 days Tobacco use date assessed: 09/13/23 Dental Screening Dental Screen Date: 09/13/23 Did you have a dental visit in the last 12 months?: Yes Did you have a dental problem in the last 6 months where you did not have access to dental care?: Yes Was dental information given to patient?: Patient has dentist HPI 6 month follow up/Missed appt 07/17 HPI Details Pt's blood pressure is low today. He does report some ongoing dizziness especially upon standing. Pt is currently taking irbesartan 150mg. Will decrease this to 75mg. Encouraged pt to push fluids. Denies chest pain, shortness of breath, headache, and blurred vision. [facility] Medical History Snoring Sleep disorder Opioid use disorder Family History Father No problems noted. Mother No problems noted. Son No problems noted. Sister No problems noted. Sister No problems noted. Social History Housing: House Patient Tobacco Use Status: Current everyday Tobacco user Cigarette Packs Per Day: 1 e-Cigarette/Vaping Use: Never Used Second Hand Smoke Exposure: Yes service: No Current occupational status: employed Current occupation: [employer] Current occupational exposures/hazards: No Cognitive needs: No Hearing needs: No Vision needs: No Questionnaire PHQ-9 Over the last 2 weeks, how often have you been bothered by any of the following problems? 1. Little interest or pleasure in doing things: not at all 2. Feeling down, depressed, or hopeless: not at all 3. Trouble falling or staying asleep, or sleeping too much: not at all 4. Feeling tired or having little energy: not at all 5. Poor appetite or overeating: not at all 6. Feeling bad about yourself - or that you are a failure or have let yourself or your family down: not at all 7. Trouble concentrating on things, such as reading the newspaper or watching television: not at all 8. Moving or speaking so slowly that other people could have noticed. Or the opposite - being so fidgety or restless that you have been moving around a lot more than usual: not at all 9. Thoughts that you would be better off or of hurting yourself in some way: not at all Total score: 0 Depression Screening Interpretation: Negative Depression Screening Done: Yes 78980 - PHQ-9 Billing: Yes Source: Developed by Drs. Terence Hernandez, Toya Cruz, Niranjan Baez and colleagues, with an educational crissy from [employer]. Thrive Questionnaire Date Thrive assessed: 09/13/23 I am a: Patient What is your living situation today?: I have a steady place to live Within the past 12 months, did the food you bought not last and you didn't have the money to get more?: Never true Within the past 12 months, did you worry whether your food would run out before you got money to buy more?: Never true Do you have trouble paying for medicines?: No Do you have trouble getting transportation to medical appointments?: No Do you have trouble paying your heating and electricity bill?: No Do you have trouble taking care of your child, family member or friend?: No Do you have trouble with day-to-day activities such as bathing, preparing meals, shopping, managing finances, etc.?: No Are you currently unemployed and looking for a job?: No Are you interested in more education?: No THRIVE Score: 0 AUDIT C Alcohol Use Questionnaire (AUDIT-C) 1. How often do you have a drink containing alcohol?: Monthly or less 2. How many drinks containing alcohol do you have on a typical day when you are drinking?: 1 or 2 3. How often do you have six or more drinks on one occasion?: Never Total Score: 1 PB-7 AMB Questionnaire PB-7 Date PB - 7 assessed: 09/13/23 Feeling nervous, anxious, or on edge: 0 = Not at all Not being able to stop or control worryin = Not at all Worrying too much about different things: 0 = Not at all Trouble relaxin = Not at all Being so restless that it is hard to sit still: 0 = Not at all Becoming easily annoyed or irritable: 0 = Not at all Feeling afraid as if something awful might happen: 0 = Not at all Total PB-7 score (0-4 normal; 5-9 mild; 10-14 moderate; 15-21 severe): 0 Source: Developed by Drs. Terence Hernandez, Toya Cruz, Niranjan Baez and colleagues, with an educational crissy from [employer]. Review of Systems Const Reports as per HPI Physical exam (Primary Care) Vital Signs: Last Vital Signs Pulse 80 09/13/23 07:49 BP 92/72 09/13/23 07:49 Pulse Ox 98 09/13/23 07:49 Oxygen Delivery Method Room Air 09/13/23 07:49 BMI result Body Mass Index 34.1 Tobacco/Smoking Status: Tobacco use Status Tobacco use date assessed 09/13/23 09/13/23 07:55 Patient Tobacco Use Status Current everyday Tobacco 09/13/23 07:55 e-Cigarette/Vaping Use Never Used 09/13/23 07:55 PHQ-9: PHQ-9 Score PHQ-9: Total score 0 09/13/23 07:55 Depression Screening Interpretation: Negative Thrive Assessment: Date of Thrive Assessment Date Thrive assessed 09/13/23 09/13/23 07:55 Const General: cooperative Nutritional Appearance: obese Orientation/consciousness: patient oriented x3 Resp Effort & Inspection: normal respiratory effort Auscultation: clear to auscultation bilaterally Cardio Rate: regular rate Rhythm: regular rhythm Heart sounds: S1 normal heart sound present and S2 normal heart sound present Neuro General: patient oriented x3 Psych Appearance: grossly normal Mental Status: mental status grossly normal Speech and movement: Normal speech and movement present Affect: normal affect Attitude: cooperative Thought process: Normal thought process present Thought content: Normal thought content present Insight: Good insight present (Psych) Judgement: Good judgement present (Psych) Assessment and Plan Assessment & Plan (1) Orthostatic hypotension: Code(s): I95.1 - Orthostatic hypotension Plan: decrease irbesartan from 150mg to 75mg Plan The patient agreed to the use of a medical office administrator for this encounter. Scribed for SATURNINO Nagel by Blanca Farris medical office administrator, on 09/13/2023 at 07:55 EST. Medications: Changed From irbesartan 150 mg PO DAILY 90 days 90 tabs 1RF To irbesartan 75 mg PO DAILY 90 days 90 tabs 1RF Coding Level of Care Code Est Pt Level 3 (15025) Diagnoses Orthostatic hypotension I95.1
== END 2023-09-13 10:45 | disposition home or self-care (01) ==
PROVIDERS: PCP Nurse Practitioner Family; Visit Provider Nurse Practitioner Family
DX: I95.1 Orthostatic hypotension (principal)
CPT/HCPCS: 99213

== ENCOUNTER 2023-09-13 08:15 | Outpatient (REF) | payer BC, SELFPAY ==
[2023-09-17 16:58] LABS: Testosterone, Total 313 ng/dL (250-1100)
== END 2023-09-13 08:16 | disposition home or self-care (01) ==
LOC: HO.HMGCLDS 08:15
PROVIDERS: PCP Nurse Practitioner Family; Visit Provider Urology
DX: R79.89 Other specified abnormal findings of blood chemistry (principal)
CPT/HCPCS: 36415; 84402; 84403

== ENCOUNTER 2023-09-29 10:06 | Outpatient (AMB) | payer BC, SELFPAY ==
--- NOTE | 2023-09-29 10:37 | MHC.OFFVIS ---
Intake Visit Reasons: 4m/LABS(set) Intake Note: Patient is Present for Follow Up Urology Medication: Tadalafil Antibiotic Allergies: None Blood Thinners:None Allergies No Known Allergies [No Known Allergies*] Allergy (Verified 09/29/23 10:38) many environmental allergies Allergy (Unknown, Uncoded 09/29/23 10:38) Unknown Medication List - Last Reconciled 09/29/23 by Nacho Andujar MD ibuprofen 800 mg PO TID irbesartan 75 mg PO DAILY 90 days loratadine 10 mg PO DAILY omeprazole 20 mg PO BID tadalafil 5 mg PO DAILY 90 days HPI Comments Details: Jake is a pleasant male. He is a patient Dr. Pride. He is seen for following urologic conditions - nephrolithiasis - low testosterone Low testosterone for age Persistent symptoms consistent hypogonadism Previously encouraged to remain on sleep apnea machine Currently feeling stable Refill tadalafil repeat labs in 6 months Nephrolithiasis Imaging - 05/15 renal ultrasound no stone seen - 04/16 CT scan with 3 mm stone [facility] - 2018 Calcium Oxalate Monohydrate ([place]) 80% Low testosterone Initial symptoms lack of energy, decreased libido, no morning erections Has sleep apnea treated with machine Prior opiate dependence No reported significant viral illnesses Laboratories - 06/16 T 71 LH 3.5 T 195, 11/13 T 420 LH 10, 02/13 T 815 LH 22, 05/17 T 600 LH 16 E 52, 08/15 T 305 LH 6.6 - 11/13 Clomiphene stim - LH 10.3 T 415, 11/14 T 367 Fr 81 LH 3.5, 05/18 218 Fr 42 , 09/15 T 320 FT 60 Biochemical apparent testicular resistance Normal testicular size on exam Prior therapy Clomiphene 50mg QOD, Clomiphene 25mg QOD [facility] Medical History Snoring Sleep disorder Opioid use disorder Family History Father No problems noted. Mother No problems noted. Son No problems noted. Sister No problems noted. Sister No problems noted. Social History Housing: House Patient Tobacco Use Status: Current everyday Tobacco user Cigarette Packs Per Day: 1 e-Cigarette/Vaping Use: Never Used Second Hand Smoke Exposure: Yes service: No Current occupational status: employed Current occupation: [employer] Current occupational exposures/hazards: No Cognitive needs: No Hearing needs: No Vision needs: No Review of Systems Const Denies chills and Denies fever(s) Card Reports no additional complaints and Denies syncope Resp Denies cough GI Denies abdominal pain and Denies heartburn Reports as per HPI and Denies change in libido Neuro Denies syncope Psych Denies change in libido Endo Denies change in libido Physical Exam Const General: cooperative, healthy appearing, comfortable and no acute distress Orientation/consciousness: patient oriented x3 HEENT Face and sinus: Yes normal facial exam Mouth: moist mucous membranes Neck Neck: Yes normal visual inspection, Yes full ROM and Yes trachea midline Chest Chest palpation & inspection: normal inspection of the chest Resp Effort & Inspection: normal respiratory effort, able to speak in complete sentences and no respiratory distress GI Inspection: Yes normal to inspection Back/Spine/Pelvis Cervical Spine: normal cervical lordosis Thoracic/Lumbar Spine: thoracic and lumbar spine normal to inspection Skin General skin exam: no rashes or lesions noted Neuro General: patient oriented x3, gait normal, tone normal and moves all extremities Extrem General: Yes normal to inspection and Yes capillary refill normal Assessment & Plan Assessment & Plan (1) Kidney stones: Code(s): N20.0 - Calculus of kidney Category: Medical (2) Low testosterone: Code(s): R79.89 - Other specified abnormal findings of blood chemistry Category: Medical Plan Six-month follow-up labs Orders: Orders Testosterone, Free/Total 6 Months R68.82 - Decreased libido, R79.89 - Other specified abnormal findings of blood chemistry Medications: Refilled tadalafil daily medication 5 mg PO DAILY 90 days 90 tabs 0RF Bladder R79.89 - Other specified abnormal findings of blood chemistry Patient Instructions: Imaging studies, laboratory and physical exam results were discussed and reviewed in detail. No major barriers to patient understanding were identified. An opportunity to ask questions regarding the treatment plan was provided. All questions were answered. The patient expressed understanding and agreement with the above treatment plan. The patient is aware they should contact our office by phone for worsening of their current condition or the appearance of new urologic symptoms. Compliance is encouraged with any medications and followup testing that is ordered. It is a privilege to participate in the urologic care of your patient. If you have any questions or concerns regarding treatment for the above conditions, or other urologic issues, please do not hesitate to contact me. The office telephone contact is [phone]. This note is constructed using voice recognition software. While every effort has been made to ensure accuracy pump erector helper errors may have been included. Yours sincerely, Dr Nacho Andujar MD, [facility] - Urology Providers of Expert, Compassionate Care for the Genitourinary System Coding Level of Care Code Est Pt Level 3 (71862) Diagnoses Kidney stones N20.0 Low testosterone R79.89
== END 2023-09-29 11:09 | disposition home or self-care (01) ==
PROVIDERS: PCP Nurse Practitioner Family; Visit Provider Urology
DX: N20.0 Calculus of kidney (principal); R79.89 Other specified abnormal findings of blood chemistry
CPT/HCPCS: 99213

== ENCOUNTER → 2023-09-29 10:06 | Outpatient (BNVA) | payer BC, SELFPAY | PROVIDERS: PCP Nurse Practitioner Family; Visit Provider Urology ==

== ENCOUNTER 2023-11-14 07:38 | Emergency (ER) | payer OTHER, BC, SELFPAY ==
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
[2023-11-14 07:43] VITALS: BP 127/97; BP 131/78; PULSE 104; PULSE 91; RESP 16; TEMP 36.6; O2SAT 97; BMI 35.0
[2023-11-14 07:49] VITALS: BP 127/97; PULSE 91; RESP 16; TEMP 36.6; O2SAT 97
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
[2023-11-14 08:41] VITALS: BP 126/75; PULSE 74; RESP 18; TEMP 37.1; O2SAT 95
[2023-11-14] MEDS: Ibuprofen 800 MG TABLET PO (10:04)
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
[2023-11-14 10:09] VITALS: BP 141/89; PULSE 69; RESP 14; O2SAT 98
--- NOTE | 2023-11-14 10:11 | PC.NURSE ---
Imaging results reviewed with Pt by provider and collar removed. Pt medicated per JUN. C/o 12/02 pain to R neck and R shoulder along with generalized stiffness but was able to walked about the unit, used the restroom without difficulty. Pt will be d/c'd.
[2023-11-14 10:15] VITALS: BP 141/89; PULSE 69; RESP 16; TEMP -17.7; TEMP 0; O2SAT 98
== END 2023-11-14 10:16 | disposition home or self-care (01) ==
PROVIDERS: Emergency Provider Emergency Medicine; PCP Nurse Practitioner Family
DX: S16.1XXA Strain of muscle, fascia and tendon at neck level, initial encounter (principal); R51.9 Headache, unspecified; M54.2 Cervicalgia; V43.52XA Car driver injured in collision with other type car in traffic accident, initial encounter; Y93.89 Activity, other specified; Y92.488 Other paved roadways as the place of occurrence of the external cause; Y99.8 Other external cause status
CPT/HCPCS: 70450; 72125; 99284; 99285

== ENCOUNTER 2023-11-16 08:59 | Outpatient (AMB) | payer OTHER, BC, SELFPAY ==
[2023-11-16 09:33] VITALS: BP 122/80; PULSE 67; O2SAT 97
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
== END 2023-11-16 10:08 | disposition home or self-care (01) ==
PROVIDERS: PCP Nurse Practitioner Family; Visit Provider Physician Assistant
DX: S06.0X0A Concussion without loss of consciousness, initial encounter (principal); Z04.3 Encounter for examination and observation following other accident
CPT/HCPCS: 99215

== ENCOUNTER 2023-11-16 10:26 | Emergency (ER) | payer OTHER, BC, SELFPAY ==
[2023-11-16 10:40] VITALS: BP 125/84; PULSE 69; RESP 19; TEMP 36.6; O2SAT 98; BMI 34.4
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
[2023-11-16] MEDS: Ketorolac Tromethamine 15 MG/ML VIAL IVPUSH (11:41)
[2023-11-16] MEDS: 0.9 % Sodium Chloride 1,000 ML 999 ML IV (11:41)
[2023-11-16] MEDS: diphenhydrAMINE HCL 50 MG/ML VIAL 25 MG IVPUSH (11:42)
[2023-11-16] MEDS: Metoclopramide HCl 10 MG/2 ML VIAL IVPUSH (11:45)
[2023-11-16 13:39] VITALS: BP 134/86; PULSE 63; RESP 16; TEMP 36.3; O2SAT 97
== END 2023-11-16 13:48 | disposition home or self-care (01) ==
PROVIDERS: Emergency Provider Emergency Medicine Emergency Medical Services; PCP Nurse Practitioner Family
DX: S06.0X0A Concussion without loss of consciousness, initial encounter (principal); V43.52XA Car driver injured in collision with other type car in traffic accident, initial encounter; F17.210 Nicotine dependence, cigarettes, uncomplicated; Y93.89 Activity, other specified; Y92.414 Local residential or business street as the place of occurrence of the external cause; Y99.9 Unspecified external cause status
CPT/HCPCS: 96361; 96374; 96375; 99283; 99284; J1200; J1885; J2765

== ENCOUNTER 2023-12-01 09:20 | Outpatient (AMB) | payer OTHER, BC, SELFPAY ==
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
[2023-12-01 09:29] VITALS: BP 120/76; PULSE 76; O2SAT 97; BMI 34.6
== END 2023-12-01 11:06 | disposition home or self-care (01) ==
PROVIDERS: PCP Nurse Practitioner Family; Visit Provider Nurse Practitioner Family
DX: M25.511 Pain in right shoulder (principal); M54.2 Cervicalgia; S06.0X0A Concussion without loss of consciousness, initial encounter
CPT/HCPCS: 99213

== ENCOUNTER 2023-12-01 10:19 | Outpatient (REF) | payer OTHER, BC, SELFPAY ==
--- NOTE | ~2023-12-01 | XR_ITS ---
EXAMINATION: XR SHOULDER, RIGHT CLINICAL INFORMATION: Pain COMPARISON: None available. TECHNIQUE: AP external rotation, Grashey, scapular Y, and axillary views of the right shoulder. FINDINGS: There is mild acromioclavicular osteoarthritis. Glenohumeral joint is well preserved. No fracture. Alignment is anatomic. Soft tissues are normal with no abnormal calcifications. XR/XR shoulder RT min 2V IMPRESSION: Mild acromioclavicular osteoarthritis. Electronically signed by: Fernanda Lutz MD 01/12/2024 04:54 PM EDT
== END 2023-12-01 10:20 | disposition home or self-care (01) ==
LOC: HO.HMGCX 10:19
PROVIDERS: PCP Nurse Practitioner Family; Visit Provider Nurse Practitioner Family
DX: M25.511 Pain in right shoulder (principal)
CPT/HCPCS: 73030

== ENCOUNTER 2023-12-28 15:25 | Outpatient (AMB) | payer OTHER, BC, SELFPAY ==
[2023-12-28 15:31] VITALS: BP 112/72; PULSE 77; O2SAT 98; BMI 34.6
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
== END 2023-12-28 16:52 | disposition home or self-care (01) ==
LOC: HO.HMGC 15:25
PROVIDERS: PCP Nurse Practitioner Family; Visit Provider Nurse Practitioner Family
DX: S06.0X0A Concussion without loss of consciousness, initial encounter (principal)
CPT/HCPCS: 99213

== ENCOUNTER 2024-01-04 15:07 | Outpatient (AMB) | payer OTHER, BC, SELFPAY ==
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
== END 2024-01-04 15:32 | disposition home or self-care (01) ==
PROVIDERS: PCP Nurse Practitioner Family; Visit Provider Physical Medicine & Rehabilitation
DX: S06.0X0A Concussion without loss of consciousness, initial encounter (principal); G44.86 Cervicogenic headache
CPT/HCPCS: 99204

== ENCOUNTER → 2024-01-04 15:07 | Outpatient (BNVA) | payer OTHER, BC, SELFPAY | PROVIDERS: PCP Nurse Practitioner Family; Visit Provider Physical Medicine & Rehabilitation ==

== ENCOUNTER 2024-02-07 07:26 | Outpatient (AMB) | payer BC, SELFPAY ==
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
[2024-02-07 07:47] VITALS: BP 110/80; PULSE 74; O2SAT 97; BMI 35.0
== END 2024-02-07 08:13 | disposition home or self-care (01) ==
PROVIDERS: PCP Nurse Practitioner Family; Visit Provider Nurse Practitioner Family
DX: Z00.00 Encounter for general adult medical examination without abnormal findings (principal); F17.200 Nicotine dependence, unspecified, uncomplicated

== ENCOUNTER → 2024-02-07 07:26 | Outpatient (BNVA) | payer BC, OTHER, SELFPAY | PROVIDERS: PCP Nurse Practitioner Family; Visit Provider Nurse Practitioner Family | DX: Z00.00 Encounter for general adult medical examination without abnormal findings (principal); F17.210 Nicotine dependence, cigarettes, uncomplicated | CPT/HCPCS: 96127 ==

== ENCOUNTER 2024-02-08 09:52 | Outpatient (AMB) | payer OTHER, BC, SELFPAY ==
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
== END 2024-02-08 10:08 | disposition home or self-care (01) ==
PROVIDERS: PCP Nurse Practitioner Family; Visit Provider Physical Medicine & Rehabilitation
DX: G44.86 Cervicogenic headache (principal); S06.0X0A Concussion without loss of consciousness, initial encounter
CPT/HCPCS: 99212

== ENCOUNTER → 2024-02-08 09:52 | Outpatient (BNVA) | payer OTHER, BC, SELFPAY | PROVIDERS: PCP Nurse Practitioner Family; Visit Provider Physical Medicine & Rehabilitation ==

== ENCOUNTER 2024-02-15 17:00 | Outpatient (RCR) | payer OTHER, BC, SELFPAY ==
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
== END 2024-02-15 18:03 | disposition home or self-care (01) ==
LOC: HO.PT 17:00
PROVIDERS: PCP Nurse Practitioner Family; Visit Provider Nurse Practitioner Family
DX: M25.511 Pain in right shoulder (principal); M54.2 Cervicalgia
CPT/HCPCS: 97110; 97112; 97140; 97162; 97530

== ENCOUNTER 2024-03-19 07:08 | Outpatient (REF) | payer OTHER, BC, SELFPAY ==
[2024-03-19 10:04] LABS: MANUAL DIFF FLAG NO
[2024-03-19 10:05] LABS: Appearance Urine Clear; Color Urine Yellow; Glucose Urine UA Negative (Negative); Leukocyte Esterase Urine Negative (Negative); Nitrite Urine Negative (Negative); Specific Gravity - Urine >= 1.030 (1.005-1.025); Urine Blood Negative (Negative); Urine Ketones Trace mg/dL (Negative); Urine Protein Negative (Neg-Trace)
[2024-03-19 10:08] LABS: Basophils Absolute Auto 0.1 X10*3/uL (0.0-0.2); Basophils Percent Auto 0.8 % (0-2); Eosinophils Absolute Auto 0.2 X10*3/uL (0.0-0.4); Eosinophils Percent Auto 2.3 % (0-4); Hematocrit 42.9 % (42.0-52.0); Hemoglobin 14.6 g/dl (14.0-18.0); Imm Gran Abs Auto 0.02 X10*3/uL (0.00-0.03); Imm Gran Pct Auto 0.2 % (0.0-0.4); Lymphocytes Absolute Auto 3.2 X10*3/uL (1.2-4.9); Lymphocytes Percent Auto 34.2 % (20-40); Mean Corpuscular Hemoglobin 30.3 pg (27.0-33.0); Mean Platelet Volume 10.2 fL (9.4-12.4); Monocytes Absolute Auto 0.6 X10*3/uL (0.1-1.2); Monocytes Percent Auto 6.3 % (2-11); Neutrophils Absolute Auto 5.2 x10*3/uL (2.0-8.3); Neutrophils Percent Auto 56.2 % (45-73); Platelet Count 310 X10*3/uL (160-400); Red Blood Count 4.82 X10*6/uL (4.60-5.80); Red Cell Distribution Width 12.8 % (11.0-16.0); White Blood Count 9.2 X10*3/uL (4.8-10.8)
[2024-03-19 11:05] LABS: Alanine Aminotransferase 39 U/L (0-40); Alkaline Phosphatase 71 U/L (39-117); Anion Gap 11 (12-20); Aspartate Amino Transferase 27 U/L (5-37); Bilirubin Total 0.2 mg/dL (0.0-1.0); Blood Urea Nitrogen 16 mg/dL (9-16); Calcium 9.2 mg/dL (8.4-10.2); Carbon Dioxide 25 mmol/L (22-29); Chloride 108 mmol/L (96-108); Cholesterol 214 mg/dL (<200); Estimated Glomerular Filt Rate > 60; Glucose Fasting 110 mg/dL (60-99); HDL Cholesterol 34 mg/dL (>40); LDL Cholesterol Calculated 127 mg/dL (<100); Potassium 3.9 mmol/L (3.3-5.1); Sodium 140 mmol/L (135-145); Total Protein 6.9 g/dL (6.5-8.0); Triglycerides 265 mg/dL (<150)
[2024-03-19 11:06] LABS: TSH reflex Free T4 1.06 uIU/mL (0.32-4.0)
[2024-03-28 14:18] LABS: Testosterone, Free 60.7 pg/mL (35.0-155.0); Testosterone, Total 255 ng/dL (250-1100)
== END 2024-03-19 07:09 | disposition home or self-care (01) ==
LOC: HO.HMGCLDS 07:08
PROVIDERS: PCP Nurse Practitioner Family; Referring Provider Urology; Visit Provider Nurse Practitioner Family
DX: Z00.00 Encounter for general adult medical examination without abnormal findings (principal); R79.89 Other specified abnormal findings of blood chemistry; R68.82 Decreased libido
CPT/HCPCS: 36415; 80053; 80061; 81003; 84402; 84403; 84443; 85025

== ENCOUNTER 2024-03-30 08:50 | Outpatient (AMB) | payer BC, SELFPAY ==
--- NOTE | 2024-03-30 09:02 | MHC.OFFVIS ---
Intake Visit Reasons: 6m/Testo Intake Note: Patient is present for 6M/TESTO Urology Medication:TADALAFIL Antibiotic Allergy:NONE Blood Thinner:NONE Hand Spring Former Required: No Allergies No Known Allergies [No Known Allergies*] Allergy (Verified 03/30/24 09:03) many environmental allergies Allergy (Unknown, Uncoded 03/30/24 09:03) Unknown HPI Comments Details: Jake is a pleasant male. He is a patient Dr. Pride. He is seen for following urologic conditions - nephrolithiasis - low testosterone Telemedicine Evaluation 15 min Consultation Goby Diallo Video Low testosterone for age Does have adequate free testosterone Previously encouraged to remain on sleep apnea machine Currently feeling stable Refill tadalafil repeat labs in 6 months Trial enclomiphene Nephrolithiasis Imaging - 05/15 renal ultrasound no stone seen - 04/16 CT scan with 3 mm stone Constitution - 2018 Calcium Oxalate Monohydrate (Whewellite) 80% Low testosterone Initial symptoms lack of energy, decreased libido, no morning erections Has sleep apnea treated with machine Prior opiate dependence No reported significant viral illnesses Laboratories - 06/16 T 71 LH 3.5 T 195, 11/13 T 420 LH 10, 02/13 T 815 LH 22, 05/17 T 600 LH 16 E 52, 08/15 T 305 LH 6.6 - 11/13 Clomiphene stim - LH 10.3 T 415, 11/14 T 367 Fr 81 LH 3.5, 05/18 218 Fr 42 , 09/15 T 320 FT 60, 03/18 255 FT 60 Biochemical apparent testicular resistance Normal testicular size on exam [facility] Medical History Snoring Sleep disorder Opioid use disorder Surgical History History of extraction of renal calculus Family History Father No problems noted. Mother No problems noted. Son No problems noted. Sister No problems noted. Sister No problems noted. Social History Housing: House Patient Tobacco Use Status: Current everyday Tobacco user Cigarette Packs Per Day: 1 e-Cigarette/Vaping Use: Never Used Second Hand Smoke Exposure: Yes Substance Use Type: Marijuana service: No Current occupational status: employed Current occupation: [employer] Current occupational exposures/hazards: No Cognitive needs: No Hearing needs: No Vision needs: No Review of Systems Const All systems reviewed & are unremarkable except as noted in HPI and below Reports no additional complaints Resp Reports no additional complaints GI Reports no additional complaints Reports as per HPI Musc Reports no additional complaints Physical Exam Telemedicine evaluation Appropriate responses Regular breathing rate and rhythm HEENT Head: Yes normal to inspection Ears: hearing grossly normal bilaterally Eyes General: appearance normal, both eyes and all related structures Neck Neck: Yes normal visual inspection Chest Chest palpation & inspection: normal inspection of the chest Resp Effort & Inspection: normal respiratory effort and able to speak in complete sentences Telehealth Telehealth Telehealth Platform: Goby Location of provider rendering services: practice address Location of patient: address on file Patient Identification confirmed using: Name, : Yes Telehealth method: video Patient verbally consented to treatment: Yes Patient verbally consented to billing insurance company: Yes Patient informed of any privacy concerns related to visit: Yes Minutes spent on Phone/Video with Pt.: 15 Assessment & Plan Assessment & Plan (1) Decreased libido: Code(s): R68.82 - Decreased libido Category: Medical (2) Low testosterone: Code(s): R79.89 - Other specified abnormal findings of blood chemistry Category: Medical Plan Three-month follow-up Orders: Orders Testosterone, Free/Total 10 Weeks R79.89 - Other specified abnormal findings of blood chemistry Patient Instructions: Imaging studies, laboratory and physical exam results were discussed and reviewed in detail. No major barriers to patient understanding were identified. An opportunity to ask questions regarding the treatment plan was provided. All questions were answered. The patient expressed understanding and agreement with the above treatment plan. The patient is aware they should contact our office by phone for worsening of their current condition or the appearance of new urologic symptoms. Compliance is encouraged with any medications and followup testing that is ordered. It is a privilege to participate in the urologic care of your patient. If you have any questions or concerns regarding treatment for the above conditions, or other urologic issues, please do not hesitate to contact me. The office telephone contact is [phone]. This note is constructed using voice recognition software. While every effort has been made to ensure accuracy child care centre manager errors may have been included. Yours sincerely, Dr Nacho Andujar MD, [place] [facility] - Urology Providers of Expert, Compassionate Care for the Genitourinary System Coding Level of Care Code Tele Est Pt Level 4 (93909) Diagnoses Decreased libido R68.82 Low testosterone R79.89
== END 2024-03-30 10:19 | disposition home or self-care (01) ==
LOC: HO.HUSH 08:50
PROVIDERS: PCP Nurse Practitioner Family; Visit Provider Urology
DX: R68.82 Decreased libido (principal); R79.89 Other specified abnormal findings of blood chemistry
CPT/HCPCS: 99214

== ENCOUNTER → 2024-03-30 08:50 | Outpatient (BNVA) | payer OTHER, BC, SELFPAY | PROVIDERS: PCP Nurse Practitioner Family; Visit Provider Urology ==

== ENCOUNTER 2024-07-02 07:22 | Outpatient (REF) | payer BC, SELFPAY ==
[2024-07-10 01:13] LABS: Testosterone, Free 152.3 pg/mL (35.0-155.0); Testosterone, Total 579 ng/dL (250-1100)
== END 2024-07-02 07:23 | disposition home or self-care (01) ==
LOC: HO.HMGCLDS 07:22
PROVIDERS: PCP Nurse Practitioner Family; Visit Provider Urology
DX: R79.89 Other specified abnormal findings of blood chemistry (principal)
CPT/HCPCS: 36415; 84402; 84403

== ENCOUNTER 2024-07-17 15:20 | Outpatient (AMB) | payer BC, SELFPAY ==
--- NOTE | 2024-07-17 15:22 | MHC.OFFVIS ---
Intake Visit Reasons: 3M/testo(TESTO PENDING) Allergies No Known Allergies [No Known Allergies*] Allergy (Verified 03/30/24 09:03) many environmental allergies Allergy (Unknown, Uncoded 03/30/24 09:03) Unknown HPI Comments Details: Jake is a pleasant male. He is a patient Dr. Pride. He is seen for following urologic conditions - nephrolithiasis - low testosterone Current laboratories well in range on enclomiphene Initial Low testosterone for age Does have adequate free testosterone Previously encouraged to remain on sleep apnea machine Nephrolithiasis Imaging - 05/15 renal ultrasound no stone seen - 04/16 CT scan with 3 mm stone Constitution - 2018 Calcium Oxalate Monohydrate (Whewellite) 80% Low testosterone Initial symptoms lack of energy, decreased libido, no morning erections Has sleep apnea treated with machine Prior opiate dependence No reported significant viral illnesses Laboratories - 06/16 T 71 LH 3.5 T 195, 11/13 T 420 LH 10, 02/13 T 815 LH 22, 05/17 T 600 LH 16 E 52, 08/15 T 305 LH 6.6 - 11/13 Clomiphene stim - LH 10.3 T 415, 11/14 T 367 Fr 81 LH 3.5, 05/18 218 Fr 42 , 09/15 T 320 FT 60, 03/18 255 FT 60, 07/17 580 152 Biochemical apparent testicular resistance Normal testicular size on exam [facility] Medical History Snoring Sleep disorder Opioid use disorder Surgical History History of extraction of renal calculus Family History Father No problems noted. Mother No problems noted. Son No problems noted. Sister No problems noted. Sister No problems noted. Social History Housing: House Patient Tobacco Use Status: Current everyday Tobacco user Cigarette Packs Per Day: 1 e-Cigarette/Vaping Use: Never Used Second Hand Smoke Exposure: Yes Substance Use Type: Marijuana service: No Current occupational status: employed Current occupation: [employer] Current occupational exposures/hazards: No Cognitive needs: No Hearing needs: No Vision needs: No Review of Systems Const Denies chills and Denies fever(s) Card Reports no additional complaints and Denies syncope Resp Denies cough GI Denies abdominal pain and Denies heartburn Reports as per HPI and Denies change in libido Neuro Denies syncope Psych Denies change in libido Endo Denies change in libido Physical Exam Const General: cooperative, healthy appearing, comfortable and no acute distress Orientation/consciousness: patient oriented x3 HEENT Face and sinus: Yes normal facial exam Mouth: moist mucous membranes Neck Neck: Yes normal visual inspection, Yes full ROM and Yes trachea midline Chest Chest palpation & inspection: normal inspection of the chest Resp Effort & Inspection: normal respiratory effort, able to speak in complete sentences and no respiratory distress GI Inspection: Yes normal to inspection Back/Spine/Pelvis Cervical Spine: normal cervical lordosis Thoracic/Lumbar Spine: thoracic and lumbar spine normal to inspection Skin General skin exam: no rashes or lesions noted Neuro General: patient oriented x3, gait normal, tone normal and moves all extremities Extrem General: Yes normal to inspection and Yes capillary refill normal Assessment & Plan Assessment & Plan (1) Kidney stones: Code(s): N20.0 - Calculus of kidney Category: Medical (2) Erectile dysfunction: Code(s): N52.9 - Male erectile dysfunction, unspecified Category: Medical Plan Six-month follow-up lab work Orders: Orders US renal BI 6 Months N20.0 - Calculus of kidney Testosterone, Total 6 Months N20.0 - Calculus of kidney Prostate Specific Antigen 6 Months N20.0 - Calculus of kidney Complete Blood Count no Diff 6 Months N20.0 - Calculus of kidney Patient Instructions: This note is constructed using voice recognition software. While every effort has been made to ensure accuracy novelty worker errors may have been included. Imaging studies, laboratory and physical exam results were discussed and reviewed in detail. No major barriers to patient understanding were identified. An opportunity to ask questions regarding the treatment plan was provided. All questions were answered. The patient expressed understanding and agreement with the above treatment plan. The patient is aware they should contact our office by phone for worsening of their current condition or the appearance of new urologic symptoms. Compliance is encouraged with any medications and followup testing that is ordered. It is a privilege to participate in the urologic care of your patient. If you have any questions or concerns regarding treatment for the above conditions, or other urologic issues, please do not hesitate to contact me. The office telephone contact is [phone]. Sincerely, Dr Nacho Andujar MD, [place] [facility] - Urology Compassionate Specialist Care for the Genitourinary System Coding Level of Care Code Est Pt Level 3 (26662) Diagnoses Kidney stones N20.0 Erectile dysfunction N52.9
== END 2024-07-17 15:53 | disposition home or self-care (01) ==
LOC: HO.HUSH 15:20
PROVIDERS: PCP Nurse Practitioner Family; Visit Provider Urology
DX: N20.0 Calculus of kidney (principal); N52.9 Male erectile dysfunction, unspecified
CPT/HCPCS: 99213

== ENCOUNTER 2024-08-20 08:01 | Outpatient (REF) | payer BC, SELFPAY ==
[2024-08-20 11:35] LABS: Influenza A PCR NEGATIVE (Negative); Influenza B PCR NEGATIVE (Negative); Resp Syncy Virus RNA Qual PCR NEGATIVE (Negative); SARS COV2 PCR INHOUSE NEGATIVE (Negative)
== END 2024-08-20 08:02 | disposition home or self-care (01) ==
LOC: HO.LAB 08:01
PROVIDERS: Nurse Practitioner Family; PCP Nurse Practitioner Family
DX: J06.9 Acute upper respiratory infection, unspecified (principal); R05.2 Subacute cough
CPT/HCPCS: 0241U

== ENCOUNTER 2024-08-20 08:01 | Outpatient (AMB) | payer BC, SELFPAY ==
[2024-08-20 08:08] VITALS: BP 112/84; PULSE 72; TEMP 36.9; O2SAT 98
--- NOTE | 2024-08-20 08:08 | AM.OFFWIN_ITS ---
Intake Vital Signs 08/20/24 08:08 Weight 245 lb BP 112/84 Blood Pressure Location Rt brachial Position Sitting Pulse 72 Pulse Source Pulse Oximeter Temp 98.4 F Temp Source Oral Pulse Oximetry (%) 98 Oxygen Delivery Method Room Air Intake Visit Reasons: EP Sinus/chest congestion Intake Note: Patient here for chest congestion, chest tightness, cough, SOB, wheezing and sinus congestion that has been present for 2 weeks. Patient Tobacco Use Status: Current everyday Tobacco user Allergies No Known Allergies [No Known Allergies*] Allergy (Verified 08/20/24 08:11) many environmental allergies Allergy (Unknown, Uncoded 08/20/24 08:11) Unknown Do you need a note to return to daycare/school/sports/work: No HPI HPI Comments History of Present Illness Details 39 y/o Male patient who presents to the walk in clinic with c/o chest congestion, chest tightness, cough, SOB, wheezing and sinus congestion that has been present for 2 weeks. [facility] Medical History (Updated 08/20/24 @ 08:27 by Tania Siddiqi NP) Cough Acute respiratory disease Snoring Sleep disorder Opioid use disorder Surgical History History of extraction of renal calculus Family History Father No problems noted. Mother No problems noted. Son No problems noted. Sister No problems noted. Sister No problems noted. Social History Housing: House Patient Tobacco Use Status: Current everyday Tobacco user Cigarette Packs Per Day: 1 e-Cigarette/Vaping Use: Never Used Second Hand Smoke Exposure: Yes Substance Use Type: Marijuana service: No Current occupational status: employed Current occupation: [employer] Current occupational exposures/hazards: No Cognitive needs: No Hearing needs: No Vision needs: No Review of Systems Const All systems reviewed & are unremarkable except as noted in HPI and below Physical Exam Vital Signs: Last Vital Signs Temp 98.4 F 08/20/24 08:08 Pulse 72 08/20/24 08:08 BP 112/84 08/20/24 08:08 Pulse Ox 98 08/20/24 08:08 Oxygen Delivery Method Room Air 08/20/24 08:08 Const General: no acute distress Nutritional Appearance: obese morbidly obese Orientation/consciousness: patient oriented x3 HEENT Head: Yes normocephalic Ears: external ears normal and TM abnormal with fluid behind the TM bilateral General nose exam: Normal external nose present Face and sinus: Yes sinuses nontender Mouth: moist mucous membranes Throat: Yes uvula midline Resp Effort & Inspection: normal respiratory effort and able to speak in complete sentences Auscultation: clear to auscultation bilaterally, no crackles, no rales, no rhonchi and no wheezes Cardio Heart sounds: S1 normal heart sound present and S2 normal heart sound present Neuro General: patient oriented x3 Assessment & Plan Assessment & Plan (1) Acute respiratory disease: Code(s): J06.9 - Acute upper respiratory infection, unspecified Plan: Ordered Z-pack. Ordered SARs OTC cough medicine. (2) Cough: Code(s): R05.9 - Cough, unspecified Qualifiers: Cough type: subacute Qualified Code(s): R05.2 - Subacute cough Plan: Ordered Z-pack. Ordered SARs OTC cough medicine. Orders: Orders SARS-CoV2/FLU/RSV Today J06.9 - Acute upper respiratory infection, unspecified Medications: New benzonatate 200 mg (2 x 100 mg) PO BID 60 caps 0RF R05.2 - Subacute cough azithromycin 500 mg PO DAILY 3 days 3 tabs 0RF J06.9 - Acute upper respiratory infection, unspecified, R05.9 - Cough, unspecified Coding Level of Care Code Est Pt Level 4 (50157) Diagnoses Acute respiratory disease J06.9 Subacute cough R05.2 Cough type: subacute Time Spent (min) 20
== END 2024-08-20 08:28 | disposition home or self-care (01) ==
PROVIDERS: PCP Nurse Practitioner Family; Visit Provider Nurse Practitioner Family
DX: J06.9 Acute upper respiratory infection, unspecified (principal); R05.2 Subacute cough

== ENCOUNTER 2024-12-31 08:26 | Outpatient (REF) | payer BC, SELFPAY ==
--- NOTE | ~2024-12-31 | US_ITS ---
EXAMINATION: US KIDNEY BILATERAL HISTORY: N20.0 - Calculus of kidney TECHNIQUE: Real-time grayscale ultrasound imaging of the kidneys was performed and images were reviewed. COMPARISON: Comparison is made with the prior examination dated 04/29/2020. FINDINGS: Right kidney: The right kidney measures 11.7 x 6.3 x 6.2 cm. Renal parenchymal echotexture and thickness are normal. There are no masses. There is a 3 mm nonobstructing calculus at the lower pole. There is no hydronephrosis. Left Kidney: The left kidney measures 13.3 x 6.2 x 5.4 cm. Renal parenchymal echotexture and thickness are normal. There are no masses. There is a 4 x 3 x 8 mm calculus at the lower pole. There is no hydronephrosis. US/US renal BI IMPRESSION: Bilateral nephrolithiasis as described without evidence of ureteral obstruction. Electronically signed by: Terence Hernandez MD 12/31/2024 08:55 AM EDT
--- OUTSIDE RECORDS SUMMARY | 2024-12-31 09:21 | XMS_ITS | Patient Health Record ---
Author Organization [facility] Address [address] [place] [address] Care Team Providers Care Safety Physician Name Role Phone Peter Rao MD Primary Care Provider Frank Salazar Unavailable [phone] Reason For Referral No Information Medications Medication SIG (Take, Route, Fr equency, Duration) Notes Start Date End Date Status Omeprazole 20 MG 2 capsules Orally twice a day Active Social History Tobacco use other than smoking: Question Answer Notes Are you an other tobacco user? No Problems Problem Type SNOMED Code ICD Code Onset Dates Problem Status W/U Status Risk Notes Problem Bursitis - ankle/foot (352415540) Other bursitis, not elsewhere classified, left ankle and foot (M71.572) Active confirmed Problem Metatarsalgia of left foot ([id number]) Metatarsalgia , left foot (M77.42) Active confirmed Plan Of Treatment No Information Insurance Providers Payer Name Payer Address Payer Phone Subscriber Number Group Number Insured Name Patient Relationship to Insured Coverage Start Date Coverage End Date [facility] [address] [place] [address] [id number] Felipe Prakash Self - patient is the insured Medical (General) History Medical History History ICD Code Back,Hip,and Knee pain Chicken pox Chron's/Colitis Headaches Reflux Transfusions Surgical History Surgery Date(Month/Year) kidney stones 2009 and 2014
--- OUTSIDE RECORDS SUMMARY | 2024-12-31 09:21 | XMS_ITS | Patient Health Record ---
Author Organization [facility] Address [address] [place] [address] Care Team Providers Care Glue Mill Operator Name Role Phone Maira(inactive) Petre LOPEZ Primary Care Provider U Wagner Daniels Jr Unavailable Reason For Referral No Information Medications Medication SIG (Take, Route, Frequency, Duration) Notes Start Date End Date Status Zantac Active Omeprazole 20 mg 2 tablet Orally Once a day Active Colyte with Flavor Packs 240 GM As directed Orally Over the specified time. for 1 day(s) 07/03/2015 Active Problems Problem Type SNOMED Code ICD Code Onset Dates Problem Status W/U Status Risk Notes Problem [id number] Gastroesophageal reflux disease without esophagitis (K21.9) Active confirmed Problem 89479044 Other ulcerative colitis without complication (K51.80) Active confirmed Plan Of Treatment Future Test Test Name Order Date COLONOSCOPY 07/03/2015 Insurance Providers Payer Name Payer Address Payer Phone Subscriber Number Group Number Insured Name Patient Relationship to Insured Coverage Start Date Coverage End Date [facility] [employer] [address] [place] [address] [phone] [id number] YOSSI POTTER Self - patient is the insured Medical (General) History Medical History History ICD Code colonosocpy 07-24-2008 ulcerative colitis colon polyps tension headaches Denies ME,DM,CVA,Lung disease,renal dise ase bursitis left knee , left and right shou lder kidney stones (twice)
== END 2024-12-31 08:27 | disposition home or self-care (01) ==
LOC: HO.HMGCX 08:26
PROVIDERS: PCP Nurse Practitioner Family; Visit Provider Urology
DX: N20.0 Calculus of kidney (principal)
CPT/HCPCS: 76775

== ENCOUNTER → 2024-12-31 08:27 | Outpatient (BNV) | payer BC, SELFPAY | PROVIDERS: PCP Nurse Practitioner Family; Visit Provider Radiology Diagnostic Radiology | DX: N20.0 Calculus of kidney (principal) | CPT/HCPCS: 76775 ==

== ENCOUNTER 2025-01-08 06:20 | Outpatient (REF) | payer BC, SELFPAY ==
--- OUTSIDE RECORDS SUMMARY | 2025-01-08 06:23 | XMS_ITS | Patient Health Record ---
Author Organization [facility] Address [address] [place] [address] Care Team Providers Care Intelligence Support Officer Name Role Phone Maira(inactive) Peter LOPEZ Primary Care Provider U Wagner Daniels [...] Problem Status W/U Status Risk Notes Problem [id number] Gastroesophageal reflux disease without esophagitis (K21.9) Active confirmed Problem 76932984 Other ulcerative colitis without complication (K51.80) Active confirmed Plan Of Treatment Future Test Test Name Order Date COLONOSCOPY 07/03/2015 Insurance Providers Payer Name Payer Address Payer Phone Subscriber Number Group Number Insured Name Patient Relationship to Insured Coverage Start Date Coverage End Date [facility] [employer] [address] [place] [address] [id number] YOSSI POTTER Self - patient is the insured Medical (General) History Medical History History ICD Code colonosocpy 07-24-2008 ulcerative colitis colon polyps tension headaches Denies AL,DM,CVA,Lung disease,renal dise ase bursitis left knee , left and right shou lder kidney stones (twice)
--- OUTSIDE RECORDS SUMMARY | 2025-01-08 06:23 | XMS_ITS | Patient Health Record ---
Author Organization [facility] Address [address] [place] [address] Care Team Providers Care Bounty Trapper Name Role Phone Peter Rao MD Primary Care Provider Frank Salazar Unavailable [phone] Reason For Referral No Information Medications Medication [...] Status Risk Notes Problem Bursitis - ankle/foot (674111576) Other bursitis, not elsewhere classified, left ankle and foot (M71.572) Active confirmed Problem Metatarsalgia of left foot ([id number]) Metatarsalgia , left foot (M77.42) Active confirmed Plan Of Treatment No Information Insurance Providers Payer Name Payer Address Payer Phone Subscriber Number Group Number Insured Name Patient Relationship to Insured Coverage Start Date Coverage End Date [facility] [address] [place] [address] [id number] Felipe Prakash Self - patient is the insured Medical (General) History Medical History History ICD Code Back,Hip,and Knee pain Chicken pox Chron's/Colitis Headaches Reflux Transfusions Surgical History Surgery Date(Month/Year) kidney stones 2009 and 2014
[2025-01-08 11:20] LABS: Hematocrit 48.6 % (42.0-52.0); Hemoglobin 16.5 g/dl (14.0-18.0); Mean Corpuscular HGB Conc 34.0 g/dl (31.0-36.0); Mean Corpuscular Hemoglobin 30.9 pg (27.0-33.0); Mean Corpuscular Volume 91.0 fL (80.0-98.0); NRBC Abs Auto 0.000 X10*3/uL (0.0-0.012); NRBC Pct Auto 0.0 /100WBC (0.0-0.2); Platelet Count 230 X10*3/uL (160-400); Red Blood Count 5.34 X10*6/uL (4.60-5.80); White Blood Count 8.3 X10*3/uL (4.8-10.8)
[2025-01-08 11:48] LABS: Alanine Aminotransferase 40 U/L (0-40); Albumin Level 4.5 g/dL (3.5-5.0); Alkaline Phosphatase 49 U/L (39-117); Anion Gap 11 (12-20); Aspartate Amino Transferase 30 U/L (5-37); Blood Urea Nitrogen 12 mg/dL (9-16); Calcium 9.3 mg/dL (8.4-10.2); Carbon Dioxide 23 mmol/L (22-29); Chloride 110 mmol/L (96-108); Cholesterol 180 mg/dL (<200); Estimated Glomerular Filt Rate > 60; HDL Cholesterol 38 mg/dL (>40); Potassium 4.3 mmol/L (3.3-5.1); Sodium 140 mmol/L (135-145); Total Protein 6.9 g/dL (6.5-8.0); Triglycerides 122 mg/dL (<150)
[2025-01-08 12:09] LABS: Prostate Specific Antigen 1.78 ng/mL (<0.05-4.0)
== END 2025-01-08 06:21 | disposition home or self-care (01) ==
LOC: HO.HMGCLDS 06:20
PROVIDERS: Urology; PCP Nurse Practitioner Family; Visit Provider Nurse Practitioner Family
DX: Z12.5 Encounter for screening for malignant neoplasm of prostate (principal); N20.0 Calculus of kidney; E78.5 Hyperlipidemia, unspecified
CPT/HCPCS: 36415; 80053; 80061; 84153; 84403; 85027

== ENCOUNTER 2025-01-18 13:55 | Outpatient (AMB) | payer BC, SELFPAY ==
--- NOTE | 2025-01-18 13:56 | A.OFFVIS_ITS ---
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 He is a patient Dr. Pride. He is seen for following urologic conditions - nephrolithiasis - low testosterone Continue great response to enclomiphene T 700 Significantly improved while being Obtaining morning erections Has noticed change in clothing with decreased waist size Discussed ultrasound findings small stone left side He will discuss with PCP regarding stopping CPAP He has weaned off Suboxone KUB in six-month with repeat labs Nephrolithiasis Imaging - 05/15 renal ultrasound no stone seen - 04/16 CT scan with 3 mm stone - 12/17 renal ultrasound bilateral small stones [place] - 2018 Calcium Oxalate Monohydrate (Whewellite) 80% Low testosterone Initial symptoms lack of energy, decreased libido, no morning erections Has sleep apnea treated with machine Prior opiate dependence No reported significant viral illnesses Laboratories - 06/16 T 71 LH 3.5 T 195, 11/13 T 420 LH 10, 02/13 T 815 LH 22, 05/17 T 600 LH 16 E 52, 08/15 T 305 LH 6.6 - 11/13 Clomiphene stim - LH 10.3 T 415, 11/14 T 367 Fr 81 LH 3.5, 05/18 218 Fr 42 , 09/15 T 320 FT 60, 03/18 255 FT 60, 07/17 580 152, 01/17 720 Biochemical apparent testicular resistance Normal testicular size on exam [facility] Medical History (Updated 08/20/24 @ 08:27 by Tania Siddiqi NP) Cough Acute respiratory disease Snoring Sleep disorder Opioid use disorder Surgical History History of extraction of renal calculus Family History Father No problems noted. Mother No problems noted. Son No problems noted. Sister No problems noted. Sister No problems noted. Social History Housing: House Patient Tobacco Use Status: Current everyday Tobacco user Cigarette Packs Per Day: 1 e-Cigarette/Vaping Use: Never Used Second Hand Smoke Exposure: Yes Substance Use Type: Marijuana service: No Current occupational status: employed Current occupation: [employer] Current occupational exposures/hazards: No Cognitive needs: No Hearing needs: No Vision needs: No Review of Systems Const Denies chills and Denies fever(s) Card Reports no additional complaints and Denies syncope Resp Denies cough GI Denies abdominal pain and Denies heartburn Reports as per HPI and Denies change in libido Neuro Denies syncope Psych Denies change in libido Endo Denies change in libido Physical Exam Const General: cooperative, healthy appearing, comfortable and no acute distress Orientation/consciousness: patient oriented x3 HEENT Face and sinus: Yes normal facial exam Mouth: moist mucous membranes Neck Neck: Yes normal visual inspection, Yes full ROM and Yes trachea midline Chest Chest palpation & inspection: normal inspection of the chest Resp Effort & Inspection: normal respiratory effort, able to speak in complete sentences and no respiratory distress GI Inspection: Yes normal to inspection Back/Spine/Pelvis Cervical Spine: normal cervical lordosis Thoracic/Lumbar Spine: thoracic and lumbar spine normal to inspection Skin General skin exam: no rashes or lesions noted Neuro General: patient oriented x3, gait normal, tone normal and moves all extremities Extrem General: Yes normal to inspection and Yes capillary refill normal Assessment & Plan Assessment & Plan (1) Erectile dysfunction: Code(s): N52.9 - Male erectile dysfunction, unspecified Category: Medical (2) Kidney stones: Code(s): N20.0 - Calculus of kidney Category: Medical (3) Low testosterone: Code(s): R79.89 - Other specified abnormal findings of blood chemistry Category: Medical Plan Six-month follow-up labs, KUB Orders: Orders XR KUB 6 Months N20.0 - Calculus of kidney Testosterone, Total 5 Months R7.89 - Other specified abnormal findings of blood chemistry Lutenizing Hormone 5 Months R7. - Other specified abnormal findings of blood chemistry Patient Instructions: This note is constructed using voice recognition software. While every effort has been made to ensure accuracy image processing engineer errors may have been included. Imaging studies, laboratory and physical exam results were discussed and reviewed in detail. No major barriers to patient understanding were identified. An opportunity to ask questions regarding the treatment plan was provided. All questions were answered. The patient expressed understanding and agreement with the above treatment plan. The patient is aware they should contact our office by phone for worsening of their current condition or the appearance of new urologic symptoms. Compliance is encouraged with any medications and followup testing that is ordered. It is a privilege to participate in the urologic care of your patient. If you have any questions or concerns regarding treatment for the above conditions, or other urologic issues, please do not hesitate to contact me. The office telephone contact is [phone]. Sincerely, Dr Nacho Andujar MD, [facility] - Urology Compassionate Specialist Care for the Genitourinary System Coding Level of Care Code Est Pt Level 3 (69999) Complex EM visit Add On G2211 Diagnoses Erectile dysfunction N52.9 Kidney stones N20.0 Low testosterone R79.89
--- OUTSIDE RECORDS SUMMARY | 2025-01-18 15:04 | XMS_ITS | Patient Health Record ---
Author Organization [facility] Address [address] [place] [address] Care Team Providers Care General Assembler Name Role Phone Peter Rao MD Primary Care Provider Frank Salazar Unavailable [phone] Reason For Referral No Information Medications Medication [...] Status Risk Notes Problem Bursitis - ankle/foot (860609338) Other bursitis, not elsewhere classified, left ankle and foot (M71.572) Active confirmed Problem Metatarsalgia of left foot ([id number]) Metatarsalgia , left foot (M77.42) Active confirmed Plan Of Treatment No Information Insurance Providers Payer Name Payer Address Payer Phone Subscriber Number Group Number Insured Name Patient Relationship to Insured Coverage Start Date Coverage End Date [facility] [address] [place] [address] [id number] Felipe Prakash Self - patient is the insured Medical (General) History Medical History History ICD Code Back,Hip,and Knee pain Chicken pox Chron's/Colitis Headaches Reflux Transfusions Surgical History Surgery Date(Month/Year) kidney stones 2009 and 2014
--- OUTSIDE RECORDS SUMMARY | 2025-01-18 15:04 | XMS_ITS | Patient Health Record ---
Author Organization [facility] Address [address] [place] [address] Care Team Providers Care Dynamo Repairer Name Role Phone Maira(inactive) Peter LOPEZ Primary [...] Problem Status W/U Status Risk Notes Problem [id number] Gastroesophageal reflux disease without esophagitis (K21.9) Active confirmed Problem [id number] Other ulcerative colitis without complication (K51.80) Active confirmed Plan Of Treatment Future Test Test Name Order Date COLONOSCOPY 07/03/2015 Insurance Providers Payer Name Payer Address Payer Phone Subscriber Number Group Number Insured Name Patient Relationship to Insured Coverage Start Date Coverage End Date [facility] [employer] CLAIM[employer] [address] [place] [address] [phone] [id number] YOSSI POTTER Self - patient is the insured Medical (General) History Medical History History ICD Code colonosocpy 07-24-2008 ulcerative colitis colon polyps tension headaches Denies [place],DM,CVA,Lung disease,renal dise ase bursitis left knee , left and right shou lder kidney stones (twice)
== END 2025-01-18 14:18 | disposition home or self-care (01) ==
LOC: HO.HUSH 13:56
PROVIDERS: PCP Nurse Practitioner Family; Visit Provider Urology
DX: N52.9 Male erectile dysfunction, unspecified (principal); N20.0 Calculus of kidney; R79.89 Other specified abnormal findings of blood chemistry
CPT/HCPCS: 99213

== ENCOUNTER 2025-03-14 09:09 | Outpatient (AMB) | payer BC, SELFPAY ==
[2025-03-14 09:16] VITALS: BP 122/61; PULSE 78; RESP 16; O2SAT 98; BMI 36.2
--- NOTE | 2025-03-14 09:16 | A.OFFPC_ITS ---
Vital Signs 03/14/25 09:16 Height 5 ft 10 in Weight 252 lb BMI 36.2 BP 122/61 Blood Pressure Location Rt femoral Position Sitting Respiration 16 Pulse 78 Pulse Source Pulse Oximeter Pulse Oximetry (%) 98 Oxygen Delivery Method Room Air Intake Visit Reasons: Annual PE Store Lead Required: No Accompanied by: Self / Same As Patient Allergies No Known Allergies (No Known Allergies*) Allergy (Verified 03/14/25 09:17) many environmental allergies Allergy (Unknown, Uncoded 08/20/24 08:11) Unknown Medication List - Last Reconciled 03/14/25 by YAEL Blanco- atorvastatin 10 mg PO BEDTIME ezetimibe 10 mg PO DAILY ibuprofen 800 mg PO TID irbesartan 75 mg PO DAILY 90 days lidocaine 5% (Lidoderm) 1 patch topical DAILY loratadine 10 mg PO DAILY omeprazole 20 mg PO BID tadalafil 5 mg PO DAILY 90 days Tobacco use date assessed: 03/14/25 Dental Screening Dental Screen Date: 03/14/25 Did you have a dental visit in the last 12 months?: Yes Did you have a dental problem in the last 6 months where you did not have access to dental care?: No Was dental information given to patient?: Patient has dentist HPI Annual PE HPI Details History of Present Illness The patient is a 40 year old individual presenting for a physical exam. The patient is followed by urology for testosterone therapy and reports feeling much better since starting the treatment. The patient's cholesterol is decreasing with the use of a statin. The patient has a history of smoking and continues to smoke. The patient's blood pressure is stable. Health Maintenance The patient presented for a physical exam and reports doing well. The patient was advised to call with any further questions or concerns. Social History - Substance Use: The patient continues t o smoke. Review of Systems - General: Reports feeling much better a nd doing well overall. - Cardiovascular: Denies chest pain. - Respiratory: Denies shortness of breat h. - Gastrointestinal: Denies abdominal temo n, blood in stool, constipation, or diarrhea. - Psychiatric: Denies suicidal or homici debra ideation. Physical Exam General: Cooperative, healthy appearing, comfortable, no acute distress and well developed Orientation: Patient oriented x3 Limitations: No limitations Head: Normal to inspection Ears: Hearing grossly normal bilaterally Nose: Normal external nose present Face and sinus: Normal facial exam Eyes: Appearance normal, both eyes and all related structures Neck: Normal visual inspection and Yes full ROM Respiratory: Normal respiratory effort and able to speak in complete sentences. Clear to auscultation bilaterally Cardiovascular: Regular rate and rhythm. Normal S1 and S2 GI: Normal to inspection. Soft to palpation and nontender : Testicles without masses/lesions and no hernias appreciated Skin: No rashes or lesions noted Neuro: Patient oriented x3 Extremities: Normal to inspection Results - Labs: Cholesterol is noted to be decre asing. - PSA is slightly elevated for the patie nt's age but is still within the normal range. Plan 1. Hypogonadism The patient is managed by urology for testosterone therapy and reports feeling much better with treatment. Continue to monitor PSA, as it is slightly elevated for the patient's age, although it remains within the normal range. 2. Hyperlipidemia The patient's cholesterol is decreasing with the use of a statin. Continue current management. 3. Nicotine Dependence It was noted that the patient continues to smoke. Discussion Notes I reviewed the patient's overall good health and the reported improvement since starting testosterone therapy. I discussed the plan to continue monitoring the PSA level, noting it is slightly elevated for the patient's age but still within the normal range, which is important to watch while on testosterone. We noted the positive trend in cholesterol levels with statin use and the stability of the patient's blood pressure. The patient's continued smoking was acknowledged. I instructed the patient to contact me with any further questions or concerns. Patient Instructions - We are happy to hear you are feeling m uch better on your testosterone treatment. - Your cholesterol is improving with you r current medication. - We will continue to check your PSA blo od test because you are on testosterone and the level is slightly high for your age, though it is still within the normal range. - Please call the office if you have any questions or concerns. [facility] Medical History Cough Acute respiratory disease Snoring Sleep disorder Opioid use disorder Surgical History History of extraction of renal calculus Family History Father No problems noted. Mother No problems noted. Son No problems noted. Sister No problems noted. Sister No problems noted. Social History Housing: House Patient Tobacco Use Status: Current everyday Tobacco user Cigarette Packs Per Day: 1 e-Cigarette/Vaping Use: Never Used Second Hand Smoke Exposure: Yes Substance Use Type: Marijuana service: No Current occupational status: employed Current occupation: [employer] Current occupational exposures/hazards: No Cognitive needs: No Hearing needs: No Vision needs: No Questionnaire PHQ-9 Over the last 2 weeks, how often have you been bothered by any of the following problems? 1. Little interest or pleasure in doing things: not at all 2. Feeling down, depressed, or hopeless: not at all 3. Trouble falling or staying asleep, or sleeping too much: not at all 4. Feeling tired or having little energy: several days 5. Poor appetite or overeating: not at all 6. Feeling bad about yourself - or that you are a failure or have let yourself or your family down: not at all 7. Trouble concentrating on things, such as reading the newspaper or watching television: several days 8. Moving or speaking so slowly that other people could have noticed. Or the opposite - being so fidgety or restless that you have been moving around a lot more than usual: not at all 9. Thoughts that you would be better off or of hurting yourself in some way: not at all Total score: 2 Source: Developed by Drs. Terence Hernandez, Toya Cruz, Niranjan Baez and colleagues, with an educational crissy from [employer]. Thrive Questionnaire Date Thrive assessed: 02/07/24 I am a: Patient What is your living situation today?: I choose not to answer this question Within the past 12 months, did the food you bought not last and you didn't have the money to get more?: I choose not to answer this question Within the past 12 months, did you worry whether your food would run out before you got money to buy more?: I choose not to answer this question Do you have trouble paying for medicines?: I choose not to answer this question Do you have trouble getting transportation to medical appointments?: I choose not to answer this question Do you have trouble paying your heating and electricity bill?: I choose not to answer this question Do you have trouble taking care of your child, family member or friend?: I choose not to answer this question Do you have trouble with day-to-day activities such as bathing, preparing meals, shopping, managing finances, etc.?: I choose not to answer this question Are you currently unemployed and looking for a job?: I choose not to answer this question Are you interested in more education?: I choose not to answer this question Please select the resources that you would like help with: None Currently or been in a relationship where the following occur: I choose not to answer THRIVE Score: 0 AUDIT C Alcohol Use Questionnaire (AUDIT-C) 1. How often do you have a drink containing alcohol?: Monthly or less 2. How many drinks containing alcohol do you have on a typical day when you are drinking?: 3 or 4 3. How often do you have six or more drinks on one occasion?: Less than monthly Total Score: 3 PB-7 AMB Questionnaire PB-7 Date PB - 7 assessed: 03/14/25 Feeling nervous, anxious, or on edge: 0 = Not at all Not being able to stop or control worryin = Not at all Worrying too much about different things: 0 = Not at all Trouble relaxin = Not at all Being so restless that it is hard to sit still: 0 = Not at all Becoming easily annoyed or irritable: 0 = Not at all Feeling afraid as if something awful might happen: 0 = Not at all Total PB-7 score (0-4 normal; 5-9 mild; 10-14 moderate; 15-21 severe): 0 Source: Developed by Drs. Terence Hernandez, Toya Cruz, Niranjan Baez and colleagues, with an educational crissy from [employer]. PB-7 Assessment Billing PB-7 Assessment Tool: PB-7 Assessment 87960 Physical exam (Primary Care) Vital Signs: Last Vital Signs Pulse 78 03/14/25 09:16 Resp 16 03/14/25 09:16 BP 122/61 03/14/25 09:16 Pulse Ox 98 03/14/25 09:16 Oxygen Delivery Method Room Air 03/14/25 09:16 BMI result Body Mass Index 36.2 Tobacco/Smoking Status: Tobacco use Status Tobacco use date assessed 03/14/25 03/14/25 09:17 Patient Tobacco Use Status Current everyday Tobacco 03/14/25 09:17 e-Cigarette/Vaping Use Never Used 03/14/25 09:17 PHQ-9: PHQ-9 Score PHQ-9: Total score 2 03/14/25 09:17 Thrive Assessment: Date of Thrive Assessment Date Thrive assessed 02/07/24 03/14/25 09:17 Currently or been in a relationship where the following occur: I choose not to answer Coding Level of Care Code Est Pt Prev Care 40-64y([address]386) Diagnoses Screening PSA (prostate specific antigen) Z12.5 Screening for thyroid disorder Z13.29 Physical exam Z00.00 Additional Codes PB-7 Assessment Billing - PB-7 Assessment Tool: PB-7 Assessment 39961 ([id number]) Assessment & Plan Assessment & Plan (1) Screening PSA (prostate specific antigen): Code(s): Z12.5 - Encounter for screening for malignant neoplasm of prostate Category: Medical (2) Screening for thyroid disorder: Code(s): Z13.29 - Encounter for screening for other suspected endocrine disorder Category: Medical (3) Physical exam: Code(s): Z00.00 - Encounter for general adult medical examination without abnormal findings Category: Medical Plan . Orders: Orders Prostate Specific Antigen Scr 3 Months Z12.5 - Encounter for screening for malignant neoplasm of prostate TSH reflex Free T4 3 Months Z13.29 - Encounter for screening for other suspected endocrine disorder
--- OUTSIDE RECORDS SUMMARY | 2025-03-14 11:43 | XMS_ITS | Patient Health Record ---
Author Organization [facility] Address [address] [place] [address] Care Team Providers Care Supervisor [place] Name Role Phone Maira(inactive) Peter LOPEZ Primary Care Provider U tina Hartley Jr Wagner Unavailable Reason For Referral No Information Medications Medication SIG (Take, Route, Frequency, Duration) Notes Start Date End Date Status Zantac Active Omeprazole 20 mg Tablet Delayed Release 2 tablet Orally Once a day Active Colyte with Flavor Packs 240 GM Solution Reconstituted As directed Orally Over the specified time.; Duration: 1 day(s) 07/03/2015 Active Social History Social History Additional Details Category Social Info Options Details Miscellaneous: Marital status: 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 going to be starting on patches Problems Problem Type SNOMED Code ICD Code Onset Dates Problem Status W/U Status Risk Notes Problem Gastroesophageal reflux disease without esophagitis (984818662) Gastroesophageal reflux disease without esophagitis (K21.9) Active confirmed Problem Ulcerative colitis (18495216) Other ulcerative colitis without complication (K51.80) Active confirmed Plan Of Treatment Future Test Test Name Order Date COLONOSCOPY 07/03/2015 Insurance Providers Payer Name Payer Address Payer Phone Subscriber Number Group Number Insured Name Patient Relationship to Insured Coverage Start Date Coverage End Date [facility] [address] [place] [address] [id number] YOSSI POTTER Self - patient is the insured Medical (General) History Medical History History ICD Code colonosocpy 4-1-2009 ulcerative colitis colon polyps tension headaches Denies [place],DM,CVA,Lung disease,renal dise ase bursitis left knee , left and right shou lder kidney stones (twice)
--- OUTSIDE RECORDS SUMMARY | 2025-03-14 11:43 | XMS_ITS | Patient Health Record ---
Author Organization [facility] Address [address] [place] [address] Care Team Providers Care Chaplaincy Name Role Phone Peter Rao MD Primary Care Provider Frank Salazar Unavailable [phone] Reason For Referral No Information Medications Medication [...] Status Risk Notes Problem Bursitis - ankle/foot (331000227) Other bursitis, not elsewhere classified, left ankle and foot (M71.572) Active confirmed Problem Metatarsalgia of left foot ([id number]) Metatarsalgia , left foot (M77.42) Active confirmed Plan Of Treatment No Information Insurance Providers Payer Name Payer Address Payer Phone Subscriber Number Group Number Insured Name Patient Relationship to Insured Coverage Start Date Coverage End Date [facility] [address] [place] [address] [phone] [id number] Felipe Prakash Self - patient is the insured Medical (General) History Medical History History ICD Code Back,Hip,and Knee pain Chicken pox Chron's/Colitis Headaches Reflux Transfusions Surgical History Surgery Date(Month/Year) kidney stones 2009 and 2014
== END 2025-03-14 09:41 | disposition home or self-care (01) ==
LOC: HO.HMCC 09:10
PROVIDERS: PCP Nurse Practitioner Family; Visit Provider Nurse Practitioner Family
DX: Z00.00 Encounter for general adult medical examination without abnormal findings (principal); Z12.5 Encounter for screening for malignant neoplasm of prostate; Z13.29 Encounter for screening for other suspected endocrine disorder

== ENCOUNTER → 2025-03-14 09:09 | Outpatient (BNVA) | payer BC, SELFPAY | PROVIDERS: PCP Nurse Practitioner Family; Visit Provider Nurse Practitioner Family | DX: Z12.5 Encounter for screening for malignant neoplasm of prostate (principal); Z00.00 Encounter for general adult medical examination without abnormal findings; Z13.29 Encounter for screening for other suspected endocrine disorder | CPT/HCPCS: 96127 ==